=== PATIENT | male | born 1955 | race Hispanic/Latino ===

== ENCOUNTER 2018-08-31 16:26 | Inpatient (IN) | payer BC, OTHER ==
[2018-08-31 16:47] VITALS: BMI 28.8
[2018-08-31] MEDS: Albuterol-Ipratrop 3 mg / 0.5 (3 ml) UD IH SCH ×4 (17:06→20:07)
[2018-08-31 17:11] LABS: BASO # 0.11 K/mm3 (0.0-2.0); BASO % 1.3 % (0.0-3.0); EOS # 0.8 (0.0-0.7); EOS % 8.5 % (1.5-5.0); HEMOGLOBIN 14.5 g/dL (14.0-18.0); LYMPH # 2.6 (1.2-3.4); LYMPH % 29.5 % (22.0-35.0); MEAN CELL VOLUME 90.7 fl (80.0-105.0); MEAN CORPUSCULAR HEMOGLOBIN 30.7 pg (25.0-35.0); MEAN CORPUSCULAR HGB CONC 33.9 g/dl (31.0-37.0); MEAN PLATELET VOLUME 9.4 fl (7.0-11.0); MONO # 0.9 (0.1-0.6); MONO % 9.7 % (1.0-6.0); RBC 4.72 10^6/uL (3.5-6.1); RED CELL DISTRIBUTION WIDTH 12.9 % (11.5-14.5); WHITE BLOOD COUNT 8.8 10^3/uL (4.5-11.0)
[2018-08-31 17:15] LABS: ALB/GLOB RATIO 1.3 (1.1-1.8); ALBUMIN 4.4 g/dL (3.0-4.8); ALT/SGPT 26 U/L (7-56); AST/SGOT 27 U/L (17-59); BLOOD UREA NITROGEN 14 mg/dL (7-21); GFR NON-AFRICAN AMERICAN > 60; INR 0.98; LIPASE 68 U/L (23-300); PARTIAL THROMBOPLASTIN TIME 30.3 Seconds (26.9-38.3); PROTHROMBIN TIME 10.9 SECONDS (9.4-12.5)
[2018-08-31 17:27] LABS: TROPONIN I < 0.01 ng/mL
--- NOTE | 2018-08-31 17:27 | RAD ---
Date of service: 08/31/2018 HISTORY: chest pain COMPARISON: Yeah FINDINGS: LUNGS: The lungs are hyperinflated and there is peribronchial thickening with chronic changes in both lungs. No focal consolidation. PLEURA: No pleural effusions or pneumothorax. CARDIOVASCULAR: The heart is normal in size. There are aortic atherosclerotic calcifications present. OSSEOUS STRUCTURES: Within normal limits for the patient's age. VISUALIZED UPPER ABDOMEN: Normal. OTHER FINDINGS: None. IMPRESSION: No active pulmonary disease. COPD.
--- NOTE | 2018-08-31 17:47 | ED PDOC ---
Arrival/HPI - General Chief Complaint: Shortness Of Breath Time Seen by Provider: 08/31/18 16:27 Historian: Patient - History of Present Illness Narrative History of Present Illness (Text): 08/31/18 16:27 Patient is a 63 y/o male, with a past medical history of COPD, emphysema, and asthma, who presents to the emergency department complaining of shortness of breath since this morning. Patient states he feels his lungs being "squeezed" and notes associated chest pain and wheezing. Patient informs shortness of breath is worsened when walking. Patient also notes epigastric pain, nausea, and episodes of vomiting. Patient informs taking spiriva and symbicort. Patient denies headache, dizziness, fever, chills, diarrhea, dark / bloody stools or any other complaints. Time/Duration: Other (this morning) Symptom Onset: Sudden Symptom Course: Unchanged Activities at Onset: Light Context: Home Past Medical History - Provider Review Nursing Documentation Reviewed: Yes - Infectious Disease Hx of Infectious Diseases: None - Tetanus Immunization Tetanus Immunization: Unknown - Cardiac Hx Cardiac Disorders: Yes Hx Hypertension: Yes - Pulmonary Hx Emphysema: Yes - HEENT Other/Comment: wears glasses - Hematological/Oncological Hx Blood Transfusions: No Hx Blood Transfusion Reaction: No - Musculoskeletal/Rheumatological Hx Back Pain: Yes Hx Falls: No Hx Herniated Disk: Yes (lumbar cerical) - Psychiatric Hx Depression: No Hx Emotional Abuse: No Hx Physical Abuse: No Hx Substance Use: No - Surgical History Hx Musculoskeletal Surgery: Yes (right rotator cup) - Anesthesia Hx Anesthesia: Yes Hx Anesthesia Reactions: No Hx Malignant Hyperthermia: No - Suicidal Assessment Feels Threatened In Home Enviroment: No Family/Social History - Physician Review Nursing Documentation Reviewed: Yes Family/Social History: Unknown Family HX Smoking Status: Former Smoker Hx Alcohol Use: No (social) Hx Substance Use: No Allergies/Home Meds Allergies/Adverse Reactions: Allergies No Known Allergies Allergy (Verified 07/05/13 06:36) Home Medications: Home Meds Medication Instructions Recorded Confirmed No Known Home Med 07/05/13 07/05/13 Review of Systems - Physician Review All systems were reviewed & negative as marked: Yes - Review of Systems Constitutional: absent: Fevers, Other (chills) Respiratory: SOB, Wheezing Cardiovascular: Chest Pain Gastrointestinal: Abdominal Pain (epigastric), Nausea, Vomiting. absent: Hematochezia, Other (melena) Neurological: absent: Headache, Dizziness Physical Exam - Physical Exam Narrative Physical Exam (Text): 08/31/18 16:27 Gen: VS reviewed, alert, well developed, well nourished, nontoxic, mild distress. ENT: normal pharynx. Eye: EOMI, PERRL. Neck: no JVD, supple, no adenopathy. CV: regular rate, regular rhythm, no rubs, no murmur, no gallops, S1, S2, pulses equal and strong. Pulm: tachypneic, poor air exchange bilaterally. Diffuse bilateral expiratory wheeze. no rhonchi, no rales. Abd: mild to moderate epigastric tenderness. no guarding, no rebound, no rigidity, normal bowel sounds. Ext: trace bilateral lower extremity edema Skin: good color, no rash, no cyanosis. Psych: responds appropriately to questions, normal affect. Neuro: oriented x 3, CN2-12 intact grossly, motor intact, sensation intact. Vital Signs Reviewed: Yes Vital Signs Temp Pulse Resp BP Pulse Ox 08/31/18 16:38 97.6 F 80 20 163/93 H 97 Temperature: Afebrile Blood Pressure: Hypertensive Pulse: Regular Respiratory Rate: Normal Appearance: Positive for: Well-Appearing, Non-Toxic, Comfortable Pain Distress: None Mental Status: Positive for: Alert and Oriented X 3 Medical Decision Making ED Course and Treatment: 08/31/18 18:[address] chao, patient to be admitted for copd exacerbation, respiratory status improved with steroids and nex tx during ED course but will require further tx in hospital. - Lab Interpretations Lab Results: PT 10.9 SECONDS (9.4-12.5) 08/31/18 16:50 INR 0.98 08/31/18 16:50 APTT 30.3 Seconds (26.9-38.3) 08/31/18 16:50 Troponin I < 0.01 ng/mL 08/31/18 16:50 Total Bilirubin 0.7 mg/dL (0.2-1.3) 08/31/18 16:50 AST 27 U/L (17-59) 08/31/18 16:50 ALT 26 U/L (7-56) 08/31/18 16:50 Alkaline Phosphatase 66 U/L (38-126) 08/31/18 16:50 Total Protein 7.8 g/dL (5.8-8.3) 08/31/18 16:50 Albumin 4.4 g/dL (3.0-4.8) 08/31/18 16:50 Globulin 3.4 gm/dL 08/31/18 16:50 Albumin/Globulin Ratio 1.3 (1.1-1.8) 08/31/18 16:50 Lipase 68 U/L (23-300) 08/31/18 16:50 - RAD Interpretation Radiology Orders: 08/31/18 16:47 CHEST PORTABLE [RAD] Stat - EKG Interpretation EKG Interpretation (Text): 08/31/18 16:47 Reviewed EKG, shows: NSR @ 80 bpm, nml qrs, nml axis, no acute sttw abn. Interpreted by ED Physician: Yes Type: 12 lead EKG - Medication Orders Current Medication Orders: Discontinued Medications Albuterol/Ipratropium (Duoneb 3 Mg/0.5 Mg (3 Ml) Ud) 3 ml IH Q15M [id number] Stop: 08/31/18 17:31 Last Admin: 08/31/18 17:31 Dose: 3 ml Methylprednisolone (Solu-Medrol) 60 mg IVP STAT STA Stop: 08/31/18 16:49 Last Admin: 08/31/18 17:06 Dose: 60 mg IVP Administration Document 08/31/18 17:06 BB (Rec: 08/31/18 17:06 BB [id number]) Charges for Administration # of IVP Administrations 1 - Scribe Statement The provider has reviewed the documentation as recorded by the Scribe Lexa Lee All medical record entries made by the Scribe were at my direction and personally dictated by me. I have reviewed the chart and agree that the record accurately reflects my personal performance of the history, physical exam, medical decision making, and the department course for this patient. I have also personally directed, reviewed, and agree with the discharge instructions and disposition. Disposition/Present on Arrival - Present on Arrival Any Indicators Present on Arrival: No History of DVT/PE: No History of Uncontrolled Diabetes: No Urinary Catheter: No History of Decub. Ulcer: No History Surgical Site Infection Following: None - Disposition Have Diagnosis and Disposition been Completed?: Yes Diagnosis: COPD (chronic obstructive pulmonary disease) Disposition: HOSPITALIZED Disposition Time: 16:50 Patient Plan: Admission Patient Problems: Current Active Problems Problem Status Onset COPD (chronic obstructive pulmonary disease) Acute Condition: GUARDED
--- NOTE | 2018-08-31 18:05 | CARD ---
APPROVED REPORT Date of service: 08/31/2018 EKG Measurement Heart [id number] <Conclusion> NSR normal ECG
[2018-08-31] MEDS ORDERED: Albuterol-Ipratrop 3 mg / 0.5 (3 ml) UD IH PRN (18:12)
[2018-08-31] MEDS ORDERED: Azithromycin 500 MG in Sodium Chloride 0.9% 250 ML IVPB STA (18:30)
[2018-08-31] MEDS ORDERED: cefTRIAXone 1 GM/100 ML BAG IVPB STA (18:38)
[2018-08-31] MEDS ORDERED: Azithromycin 500MG/NS 250ml 500 MG/250 ML BAG IVPB STA (18:38)
[2018-09-01] MEDS ORDERED: Albuterol-Ipratrop 3 mg / 0.5 (3 ml) UD IH STA (06:40)
[2018-09-01] MEDS: Albuterol-Ipratrop 3 mg / 0.5 (3 ml) UD IH SCH ×4 (06:59→19:34)
[2018-09-01] MEDS: cefTRIAXone 1 gm 1 GM/100 ML BAG IVPB SCH (09:40)
[2018-09-01] MEDS ORDERED: MethylPREDNISolone 40 mg Vial IVP SCH ×2 (10:00)
--- NOTE | 2018-09-01 10:59 | HP ---
DATE OF EXAM: 09/01/2018 CHIEF COMPLAINT AND HISTORY OF PRESENT ILLNESS: This is a 63-year-old male who was coming to hospital complaining of shortness of breath. The patient says that he started having worsening shortness of breath. He had difficulty breathing. He was having cough with productive sputum production. He has no fevers or chills. No nausea. No vomiting. No abdominal pain. No back pain. No dysuria or frequency. No nocturia. He says this morning he is having some epigastric pain, which is mild. He has no dysuria or frequency. All other review of symptoms are within normal limits except what was mentioned. He says that he is having wheezing, the shortness of breath is worse when he ambulates. He has been taking his Spiriva and Symbicort, but has not had much improvement. He has no fevers or chills. No dizziness, no headaches. All other review of symptoms are within normal limits except what was mentioned. ALLERGIES: NO KNOWN DRUG ALLERGIES. HOME MEDICATIONS: He takes no medications. SOCIAL HISTORY: He quit smoking about 3 months ago. He has long smoking history for over 40 years. He denies alcohol or drugs. FAMILY HISTORY: Noncontributory. PHYSICAL EXAMINATION: VITAL SIGNS: He has a temperature of 97.7, pulse of 81, blood pressure 150/79, respirations 20 and O2 saturation is 98%. Height is 5 feet 8 inches. Weight is 190 pounds. BMI is 28.9. GENERAL: The patient is lying in bed, comfortable, and in no acute distress. HEENT: Atraumatic and normocephalic. Anicteric sclerae. Moist mucosa. [place] conjunctivae. No oral lesions. NECK: No JVD, anterior and posterior adenopathy, thyromegaly, or bruits. CARDIOVASCULAR: S1 and S2 regular. No murmurs, rubs or gallops. LUNGS: Decreased bilateral air entry. Mild wheezes. No rales or rhonchi. ABDOMEN: Bowel sounds are positive. Soft, nontender and nondistended. No hepatosplenomegaly. No rebound and no guarding EXTREMITIES: No cyanosis, clubbing, or edema. NEUROLOGIC: No facial asymmetry. Tongue is midline. No uvula deviation. Power is 5/5 upper extremities and lower extremities. Sensation intact in upper extremities and lower extremities. PSYCHIATRIC: He is awake, alert and oriented x3. No anxiety or depression. He has normal affect. GENITOURINARY: No CVA tenderness. VASCULAR: 2+ pulses in the carotid pulses and pedal pulses. SKIN: No erythema or nodules. SPINE: Shows normal curvature. LABORATORY DATA: White count 8.8, hemoglobin 14.5. Chemistry shows sodium 138, potassium is 4.2, creatinine is 0.8. INR is 0.98. EKG shows heart rate of 80, sinus rhythm with acute no ST changes. Chest x-rays shows no active disease, there are hyperinflated lungs. ASSESSMENT: 1. Acute chronic obstructive pulmonary disease. 2. Bronchitis. 3. Chronic back pain. PLAN: The patient is going to be admitted to the hospital. He has received Solu-Medrol, but he is continue to have shortness of breath. The patient is going to be given a dose of Lasix. I will get Cardiology and Pulmonary to evaluate the patient. The family is asked for Dr. Wade although they was seen Dr. Nuno, previously. The patient is on Solu-Medrol. I will replace the patient on Solu-Medrol twice a day. He is going to continue with Rocephin for IV antibiotics. I did speak to the patient's at the bedside to update her on patient's diagnosis and plan of care. We will await further input from the consultants. Hugh Allison MD
--- NOTE | 2018-09-01 12:17 | CON ---
DATE: 09/01/2018 PULMONARY CONSULTATION NOTE REFERRING PHYSICIAN: Dr. Murray. REASON FOR CONSULTATION: Shortness of breath and cough. HISTORY OF PRESENT ILLNESS: This is a 63-year-old male with past medical history significant for COPD, emphysema, asthma, gastric ulcer. The patient presented to the emergency room complaining of shortness of breath. The patient reports having worsening shortness of breath, difficulty breathing, having cough with sputum production, also reports having some epigastric pain, shortness of breath seems to be exacerbated when he ambulates, has been taking Spiriva and Symbicort at home, but had no improvement. The patient and who is at bedside reports that symptoms seems to have exacerbated about 3 months ago. The patient also reports having had bronchitis and symptoms, this never improved. States that he quit smoking 3 months ago where he had 40 year pack history, 2 packs per day. This morning, patient seen sitting at bedside with his presents, states he still has shortness of breath especially with exertion, has cough with sputum production. Reports having heartburns, snores, daytime fatigue. PAST MEDICAL HISTORY: As per HPI ALLERGIES: NO KNOWN ALLERGIES. SOCIAL HISTORY: Quit smoking 3 months ago. Smokes for 40 years, 2 packs per day. No EtOH abuse. No illicit drug use. FAMILY HISTORY: No significant cardiopulmonary disease reported. MEDICATIONS: Reviewed. DuoNeb 3 mL inhalation every 6 hours, Zithromax 250 mg daily, Rocephin 1 g daily, Solu-Medrol 40 mg IV push twice a day, Protonix 40 mg twice a day. REVIEW OF SYSTEMS: No headache, rhinitis, nausea, vomiting, diarrhea, leg pain or leg swelling reported. The patient does report having shortness of breath, coughing, sputum production. Reports heartburns, snoring, daytime fatigue. Reports epigastric pain. Reports having some pain on his left side when taking deep breaths. PHYSICAL EXAMINATION: GENERAL: No acute distress. VITAL SIGNS: Blood pressure 150/79, pulse 81, temperature 97.7 and oxygen saturations 98% on nasal cannula. HEENT: Moist mucous membranes. Mallampati score of 4. Crowded airway. NECK: Supple. No JVD. RESPIRATORY: Rhonchi bilaterally. Wheezing bilaterally. CARDIOVASCULAR: S1 and S2. Regular rate and rhythm. ABDOMEN: Soft. Positive epigastric tenderness. Positive bowel sounds. EXTREMITIES: No bilateral lower extremity edema. NEUROLOGIC: Awake, alert and verbal. Following commands. LABORATORY DATA: Reviewed. WBC 8.8, RBC 4.72, hemoglobin 14.5, hematocrit 42.8 and platelets 253. PT 10.8, INR 0.98, APTT 30.3. Sodium 138, potassium 4.2, chloride 102, carbon dioxide 28, anion gap 13, BUN 14, creatinine 0.8, GFR greater than 60, random glucose 97, calcium 9, total bilirubin 0.7, AST 27, ALT 26, alkaline phosphatase 66. Troponin less than 0.01, proBNP 90.7, total protein 7.8, albumin 4.4, globulin 3.4, albumin-globulin ratio 1.3, lipase 68. Chest x-ray shows no active pulmonary disease, COPD. EKG showed normal sinus rhythm. IMPRESSION AND PLAN: Chronic obstructive pulmonary disease exacerbation, gastroesophageal reflux disease, emphysema, asthma, history of gastric ulcers. Agree with current treatment plan. Continue antibiotics. Continue IV steroids. Continue Protonix. Continue inhaled bronchodilators. Recommend the patient should have echocardiogram done. We will order procalcitonin levels to be done. We will place the patient on Lovenox for DVT prophylaxis. We will order CT scan of the chest without contrast to be done due to history of smoking, shortness of breath, cough, chronic obstructive pulmonary disease exacerbation, suspect the patient has sleep apnea syndrome. Recommend head of bed elevated at 45 degrees, sleep apnea precaution. Recommend sleep study as outpatient. Recommend full pulmonary function test as outpatient. Continue supplemental oxygen. This patient was seen and examined with Dr. Wade. Discussed assessment and plan as described above. This patient was seen and examined with Pedro Patel, nurse practitioner. Discussed assessment and plan as described above. Thank you for this consult and we will follow with you. Amanda Vasquez APN Asia Wade MD [facility]
--- NOTE | 2018-09-01 12:47 | CT ---
Date of service: 09/01/2018 PROCEDURE: CT Chest without contrast HISTORY: cough, sob, hx of smoking 40 yrs COMPARISON: CT 06/09/2013 TECHNIQUE: Contiguous axial images were obtained through the chest without intravenous contrast enhancement. Sagittal and coronal reconstructions were performed. Radiation dose: Total exam DLP = 592.42 mGy-cm. This CT exam was performed using one or more of the following dose reduction techniques: Automated exposure control, adjustment of the mA and/or kV according to patient size, and/or use of iterative reconstruction technique. FINDINGS: LUNGS: Emphysema is seen primarily in the upper lobes. There is no evidence of focal consolidation or lung nodule. MEDIASTINUM: Unremarkable thoracic aorta. No aneurysm. Normal sized heart. Main pulmonary artery unremarkable. No vascular congestion. No lymphadenopathy. Aortic calcification PLEURA: No pleural fluid. No pneumothorax. BONES: No fracture. No destructive lesion. UPPER ABDOMEN: Grossly unremarkable. OTHER FINDINGS: None. IMPRESSION: Emphysema is seen primarily in the upper lobes. There is no evidence of focal consolidation or lung nodule.
[2018-09-01] MEDS: Pantoprazole 40 mg EC Tab PO SCH (18:12)
[2018-09-01] MEDS: MethylPREDNISolone 40 mg Vial IVP SCH (18:13)
[2018-09-01] MEDS: Acetylcysteine 20% Inhal Soln (4ml) IH SCH (19:34)
[2018-09-02] MEDS: Albuterol-Ipratrop 3 mg / 0.5 (3 ml) UD IH SCH ×4 (01:21→19:27)
[2018-09-02] MEDS ORDERED: Albuterol-Ipratrop 3 mg / 0.5 (3 ml) UD IH PRN (05:15)
[2018-09-02] MEDS: MethylPREDNISolone 40 mg Vial IVP SCH ×4 (06:51→17:19)
[2018-09-02] MEDS: Pantoprazole 40 mg EC Tab PO SCH ×2 (06:51→17:19)
[2018-09-02] MEDS: cefTRIAXone 1 gm 1 GM/100 ML BAG IVPB SCH (10:11)
[2018-09-02] MEDS: Enoxaparin 40 mg Syringe SC SCH (10:12)
[2018-09-02] MEDS: Acetylcysteine 20% Inhal Soln (4ml) IH SCH ×2 (10:50→19:27)
--- NOTE | 2018-09-02 10:52 | CARD ---
APPROVED REPORT Date of service: 09/02/2018 EXAM: Two-dimensional and M-mode echocardiogram with Doppler and color Doppler. INDICATION Dyspnea 2D DIMENSIONS Left Atrium (2D)3.3 (1.6-4.0cm)IVSd1.1 (0.7-1.1cm) LVDd4.6 (3.9-5.9cm)PWd1.1 (0.7-1.1cm) LVDs3.4 (2.5-4.0cm)FS (%) 26.9 % LVEF (%)52.4 (>50%) M-Mode DIMENSIONS Aortic Root2.80 (2.2-3.7cm)Aortic Cusp Exc.2.00 (1.5-2.0cm) Aortic Valve AoV Peak Ltlcpejy021.0cm/Anni Peak GR.10mmHg Mitral Valve E/A ratio0.0 TDI E/Lateral E'0.0E/Medial E'0.0 Tricuspid Valve TR Peak [id number] [id number] Peak Gr.12mmHg [id number] LEFT VENTRICLE The left ventricle is normal size. There is normal left ventricular wall thickness. The left ventricle is hyperdynamic. There is normal LV segmental wall motion. RIGHT VENTRICLE The right ventricle is normal size. The right ventricular systolic function is normal. ATRIA The left atrium size is normal. The right atrium size is normal. The interatrial septum is intact with no evidence for an atrial septal defect. AORTIC VALVE The aortic valve is normal in structure. No aortic regurgitation is present. There is no aortic valvular stenosis. MITRAL VALVE The mitral valve is normal in structure. There is no mitral valve regurgitation noted. TRICUSPID VALVE The tricuspid valve is normal in structure. There is mild tricuspid regurgitation. PULMONIC VALVE The pulmonary valve is normal in structure. GREAT VESSELS The aortic root is normal in size. The IVC is normal in size and collapses >50% with inspiration. PERICARDIAL EFFUSION There is no pleural effusion. There is no pericardial effusion. <Conclusion> Technically limited study. Normal chamber size. Hyperdynamic systolic LV function. EF > 70%. Mild TR.
--- NOTE | 2018-09-02 14:57 | PN ---
DATE: 09/02/2018 SUBJECTIVE: The patient has no complaints of any chest pain. No shortness of breath. No headaches. PHYSICAL EXAMINATION VITAL SIGNS: Temperature s 97.9, pulse is 73, blood pressure is 150/83, respirations 20. GENERAL: The patient is lying in bed, comfortable, and in no acute distress. HEENT: Atraumatic and normocephalic. Anicteric sclerae. Moist mucosa. [place] conjunctivae. No oral lesions. NECK: No JVD, anterior and posterior adenopathy, thyromegaly, or bruits. CARDIOVASCULAR: S1 and S2 regular. No murmurs, rubs or gallops. LUNGS: Good bilateral air entry. Bilateral wheezing. No rales or rhonchi. ABDOMEN: Bowel sounds are positive. Soft, nontender and nondistended. No hepatosplenomegaly. No rebound and no guarding EXTREMITIES: No cyanosis, clubbing, or edema. NEUROLOGIC: No facial asymmetry. Tongue is midline. No uvula deviation. Power is 5/5 upper extremities and lower extremities. Sensation intact in upper extremities and lower extremities. PSYCHIATRIC: He is awake, alert and oriented x3. No anxiety or depression. He has normal affect. GENITOURINARY: No CVA tenderness. VASCULAR: 2+ pulses in the carotid pulses and pedal pulses. SKIN: No erythema or nodules SPINE: Shows normal curvature. LABORATORY DATA: White count of 8.8, hemoglobin 14.5,creatinine 0.8. ASSESSMENT: 1. Acute chronic obstructive pulmonary disease. 2. Bronchitis. 3. Chronic back pain. PLAN: The patient had a CAT scan of the chest. It shows emphysema. There is no evidence of focal consolidation or lung nodules. I appreciate the note of Dr. Wade. I did review the note. The patient is waiting to being seen by Dr. Szymanski from Cardiology. The patient is on Mucomyst. He is going to continue with Daliresp for his COPD exacerbation. The patient is also nebulizer treatment. He is on Lovenox for DVT prophylaxis. He is on Rocephin for antibiotics and Xanax for anxiety. An echo has been ordered by Dr. Szymanski. The patient is on heart-healthy diet. I did speak to the patient's at the bedside to give an update on the diagnosis and plan of care. Hugh Allison MD [facility] # [id number]
--- NOTE | 2018-09-02 15:35 | CON ---
DATE OF CONSULTATION: 09/02/2018 REFERRING PHYSICIAN: Hugh Allison MD REASON FOR CONSULTATION: Dyspnea. HISTORY OF PRESENT ILLNESS: This is a 63-year-old man with a history of longstanding tobacco abuse and severe COPD and history of prior peptic ulcer disease, who has had marked worsening dyspnea over the past several months. He was seen in the office by his animal daycare provider 2 days ago and advised urgent hospital admission. He has severe dyspnea with minimal exertion. He denies any chest discomfort, although does feel tightness with his dyspneic episodes. He was evaluated with stress testing a number of years ago and this was unremarkable. He has no prior cardiac history. He was a smoker of several packs a day for many years, having quit 3 months ago. FAMILY HISTORY: Both parents from age-related illness. SOCIAL HISTORY: As mentioned. He denies alcohol use. He is , lives with his . CURRENT MEDICATIONS: Mucomyst, Daliresp, DuoNeb inhaler, subcutaneous Lovenox, Protonix, Rocephin, Singulair, Solu-Medrol 40 mg every 6 hours, Xanax and Zithromax. ALLERGIES: NONE. REVIEW OF SYSTEMS: A 12-point review of systems is notable mainly for problems mentioned above. PHYSICAL EXAMINATION: GENERAL: He is an anxious-appearing middle-aged man who appears dyspneic at rest. VITAL SIGNS: His blood pressure is 150/80 with a pulse of 90 and respirations are 26. He is currently afebrile. HEENT: Normocephalic, atraumatic. NECK: JVD present. CHEST: Diminished breath sounds bilaterally, increased AP diameter. HEART: Heart tones are distant. PMI is not palpable. Soft systolic murmur is noted at the left sternal border. ABDOMEN: Soft, protuberant, with normoactive bowel sounds. EXTREMITIES: No clubbing, cyanosis or edema. SKIN: Warm and dry. PSYCHIATRIC: Mild anxiety, but otherwise normal mood and affect. NEUROLOGIC: Alert and oriented x3. No gross motor or sensory deficits notable. DIAGNOSTIC DATA: White count is 8.8, hemoglobin and hematocrit 14.5 and 42.8 with platelet count of 252,000. PT/PTT 10.9 and 30.3. Potassium 4.2, BUN and creatinine are 14 and 0.8. Troponin is not detected. BNP is 90. Chest x-ray reveals hyperinflated lung rasmussen. The cardiac silhouette appears normal in size. No pulmonary vascular congestion is noted. His electrocardiogram reveals sinus rhythm and is otherwise normal. CT of the chest reveals extensive upper lobe emphysema. Thoracic aorta is normal in size. IMPRESSION: 1. Severe chronic obstructive pulmonary disease with severe emphysema, appears most consistent with progressive worsening chronic obstructive pulmonary disease. No clear evidence of overt heart failure. 2. History of peptic ulcer disease. 3. Longstanding tobacco abuse. RECOMMENDATIONS: An echocardiogram has been ordered and will be reviewed. Eventual pharmacologic stress test to exclude any component of cardiac ischemia would be reasonable once his pulmonary status has stabilized. Given his marked worsening of his dyspnea, screening for pulmonary thromboembolism could be considered, although he does not appear to be at high risk with no recent prolonged travel or immobilization. Obviously continued smoking abstinence is advised. Thank you for this consultation. I would be happy to follow along as needed. Jack Calabrese MD
[2018-09-03] MEDS: MethylPREDNISolone 40 mg Vial IVP SCH ×4 (00:43→17:41)
--- NOTE | 2018-09-03 02:16 | PN ---
DATE: 09/02/2018 PULMONARY PROGRESS NOTE REFERRING PHYSICIAN: Hugh Allison MD SUBJECTIVE: He feels better. Still short of breath and wheezing. Sitting on side of the bed. Family is at bedside. Has abdominal muscle discomfort. Also some epigastric discomfort. No nausea, vomiting, or diarrhea. No leg pain or leg swelling. OBJECTIVE: GENERAL: No acute distress. VITAL SIGNS: Temperature is 98, heart rate is 81, respiratory rate is 20, blood pressure 130/77, pulse oximetry is 96% on nasal cannula. HEENT: Moist mucous membrane. Crowded airway. NECK: Supple. No JVD. LUNGS: Have prolonged poor airflow with expiratory wheezing. HEART: S1 and S2. ABDOMEN: Soft, nontender. No organomegaly. EXTREMITIES: No edema. NEUROLOGICAL: Awake and follows simple commands. MEDICATIONS: Mucomyst inhaled twice a day, Daliresp 500 mcg daily, DuoNeb every 6 hours, also getting every 2 hours p.r.n., Lovenox 40 mg daily, Protonix 40 mg twice a day, Rocephin 1 g daily, Singulair 10 mg daily, Solu-Medrol 40 mg every 6 hours, Xanax 0.125 mg every 8 hours p.r.n., Zithromax 250 mg daily. LABORATORY DATA: Reviewed noted procalcitonin on yesterday was less than 0.05. Had echocardiogram done this morning which is showing right ventricular systolic pressure is 22, LV ejection fraction more than 70%, mild TR. IMPRESSION AND PLAN: Chronic obstructive lung disease with exacerbation, history of gastroesophageal reflux disease, gastric ulcers, may have sleep apnea syndrome. Spoke to family at bedside. All their questions were answered. We will continue present steroids, inhaled bronchodilator. Continue Daliresp. We will get arterial blood gas and electrolytes in the morning. We will need attended sleep study upon discharge as outpatient. Thank you and we will follow with you. Asia Wade MD
[2018-09-03] MEDS: Pantoprazole 40 mg EC Tab PO SCH ×2 (05:24→17:40)
[2018-09-03 07:48] LABS: HEMOGLOBIN 13.5 g/dL (14.0-18.0); MEAN CELL VOLUME 92.4 fl (80.0-105.0); MEAN CORPUSCULAR HEMOGLOBIN 30.2 pg (25.0-35.0); MEAN CORPUSCULAR HGB CONC 32.7 g/dl (31.0-37.0); MEAN PLATELET VOLUME 9.3 fl (7.0-11.0); RBC 4.47 10^6/uL (3.5-6.1); WHITE BLOOD COUNT 13.8 10^3/uL (4.5-11.0)
[2018-09-03 08:25] LABS: ALB/GLOB RATIO 1.3 (1.1-1.8); ALBUMIN 3.9 g/dL (3.0-4.8); ALT/SGPT 18 U/L (7-56); AST/SGOT 19 U/L (17-59); BLOOD UREA NITROGEN 16 mg/dL (7-21); CALCIUM 8.7 mg/dL (8.4-10.5); GFR NON-AFRICAN AMERICAN > 60
[2018-09-03] MEDS: Albuterol-Ipratrop 3 mg / 0.5 (3 ml) UD IH SCH ×4 (08:51→20:59)
[2018-09-03] MEDS: Acetylcysteine 20% Inhal Soln (4ml) IH SCH ×2 (08:51→20:59)
[2018-09-03] MEDS: Enoxaparin 40 mg Syringe SC SCH (09:24)
[2018-09-03] MEDS: Cefpodoxime (Vantin) 200 mg Tab PO SCH ×2 (09:25→22:11)
[2018-09-03 10:36] LABS: ARTERIAL BLOOD GAS HCO3 29.7 mmol/L (21-28); ARTERIAL BLOOD GAS HEMOGLOBIN 13.1 g/dL (11.7-17.4); ARTERIAL BLOOD GAS O2 CONTENT 17.5 ML/dl (15-23); ARTERIAL BLOOD GAS O2 SAT 97.3 % (95-98); ARTERIAL BLOOD GAS PCO2 48 mm/Hg (35-45); ARTERIAL BLOOD GAS TCO2 31.2 mmol.L (22-28)
--- NOTE | 2018-09-03 15:27 | PN ---
DATE: 09/03/2018 SUBJECTIVE: The patient says he continues to have a cough, it is productive. He says the nebulizer treatments do help him. He has no complaints of any chest pain. No headaches. PHYSICAL EXAMINATION: VITAL SIGNS: Temperature is 98, pulse of 75, blood pressure is 151/88, respirations 20. GENERAL: The patient is lying in bed, flat, comfortable. HEENT: No oral lesion. Anicteric sclerae. Moist mucosa. NECK: No JVD, adenopathy, or thyromegaly. CARDIOVASCULAR: S1 and S2, regular. No murmurs, rubs, or gallops. LUNGS: Clear to auscultation bilaterally. No wheeze, rales, or rhonchi. ABDOMEN: Bowel sounds are positive, soft, nontender and nondistended. EXTREMITIES: No cyanosis, clubbing or edema. LABORATORY DATA: White count is 13.8, hemoglobin 13.5, creatinine is 0.7. Echo shows normal chamber size, EF of 70%, mild TR. ASSESSMENT: 1. Acute chronic obstructive pulmonary disease. 2. Bronchitis. 3. Chronic back pain. PLAN: The patient is currently on Mucomyst for his sputum production. He is on roflumilast for his chronic obstructive pulmonary disease. He is going to continue with Lovenox for deep venous thrombosis prophylaxis. The patient is on Solu-Medrol for his chronic obstructive pulmonary disease exacerbation. He is on cefpodoxime for his bronchitis. He is going to be on Zithromax for his bronchitis as well. He is on Xanax for his anxiety. He is complaining of back discomfort because of the coughing as well as the fact that he does have some chronic back issues. He will be placed on tramadol 50 mg as needed. I did speak to the patient's at the bedside to give her an update on the patient's diagnosis and plan of care. The patient is being followed by Cardiology and Pulmonary. I appreciate their input. We will continue to follow the patient closely. Hugh Allison MD
[2018-09-03] MEDS: guaiFENesin-DM 600-30 mg ER Tab PO SCH (17:40)
[2018-09-03] MEDS: POLYETHYLENE GLYCOL 3350 17 GM/Dose PACKET PO SCH (18:14)
--- NOTE | 2018-09-03 20:31 | PN ---
DATE: 09/03/2018 PULMONARY PROGRESS NOTE REFERRING PHYSICIAN: Hugh Allison MD SUBJECTIVE: He is sitting side of the bed. Daughter and are at bedside. Still has a cough and shortness of breath, but feels better than yesterday. No nausea, vomiting, diarrhea, leg pain or leg swelling. OBJECTIVE PHYSICAL EXAMINATION VITAL SIGNS: Temperature is 98, heart rate 95, respiratory rate is 20, blood pressure 164/73, pulse oxygen of 98% on nasal cannula. HEENT: Moist mucous membranes. Crowded airway. NECK: Supple. No JVD. LUNGS: Have a prolonged expiratory phase with wheezing. HEART: S1, S2. ABDOMEN: Soft, nontender. No organomegaly. Mild epigastric tenderness. EXTREMITIES: There is no edema. NEUROLOGIC: Awake, alert and follows simple commands. MEDICATIONS: He is on Mucomyst inhaled twice a day, Daliresp 500 mcg daily, also getting albuterol HFA nebulizer every 6 hours, Lovenox 40 mg daily, Protonix 40 mg twice a day, Singulair 10 mg daily, Solu-Medrol 40 mg every 6 hours, Ultram 50 mg three times a day p.r.n., Vantin 200 mg twice a day, Xanax 0.125 mg every 8 hours p.r.n., and Zithromax 250 mg daily. LABORATORY DATA: Shows a hemoglobin 13.5, hematocrit 41.3, WBC 13.8, platelet is 258. VBG done today shows pH 7.40, pCO2 of 48, O2 of 77 with nasal cannula. Sodium 138, potassium 4, chloride 100, bicarbonate is 30, BUN 16, creatinine 0.7, glucose 99, calcium 8.7, AST 19, ALT 18, alk phos is 59. Albumin is 3.9. Procalcitonin is negative. Microbiology; blood culture, urine culture there is no growth. He had an echocardiogram done yesterday, which shows right ventricular systolic pressure is 22, LV ejection fraction is hyperdynamic, ejection fraction more than 70%, mild TR. IMPRESSION AND PLAN: Chronic obstructive lung disease with exacerbation, history of gastroesophageal reflux disease, gastric ulcers, may have a sleep apnea syndrome, hyperdynamic left heart. From a pulmonary point of view doing well. We will continue intravenous steroids, inhaled bronchodilators, antibiotics, gastric and deep venous thrombosis prophylaxis. May add a small dose of beta kulwinder with diuretics. We will also add Mucinex D twice a day. I spoke to the patient's and daughter at bedside. All the questions answered. Thank you and we will follow with you. Asia Wade MD
[2018-09-04] MEDS: MethylPREDNISolone 40 mg Vial IVP SCH ×5 (00:27→21:56)
[2018-09-04] MEDS: Albuterol-Ipratrop 3 mg / 0.5 (3 ml) UD IH SCH ×4 (02:00→19:44)
[2018-09-04] MEDS: Pantoprazole 40 mg EC Tab PO SCH ×2 (05:32→15:18)
[2018-09-04 07:07] LABS: HEMOGLOBIN 13.8 g/dL (14.0-18.0); MEAN CELL VOLUME 93.4 fl (80.0-105.0); MEAN CORPUSCULAR HEMOGLOBIN 30.5 pg (25.0-35.0); MEAN CORPUSCULAR HGB CONC 32.6 g/dl (31.0-37.0); MEAN PLATELET VOLUME 9.3 fl (7.0-11.0); RBC 4.53 10^6/uL (3.5-6.1); RED CELL DISTRIBUTION WIDTH 12.9 % (11.5-14.5); WHITE BLOOD COUNT 14.2 10^3/uL (4.5-11.0)
[2018-09-04 07:35] LABS: ALB/GLOB RATIO 1.3 (1.1-1.8); ALBUMIN 4.1 g/dL (3.0-4.8); ALT/SGPT 20 U/L (7-56); AST/SGOT 21 U/L (17-59); BLOOD UREA NITROGEN 18 mg/dL (7-21); CALCIUM 8.8 mg/dL (8.4-10.5); GFR NON-AFRICAN AMERICAN > 60
[2018-09-04] MEDS: Acetylcysteine 20% Inhal Soln (4ml) IH SCH ×2 (09:11→19:44)
[2018-09-04] MEDS: Enoxaparin 40 mg Syringe SC SCH (09:50)
[2018-09-04] MEDS: POLYETHYLENE GLYCOL 3350 17 GM/Dose PACKET PO SCH ×2 (09:50→17:03)
[2018-09-04] MEDS: Cefpodoxime (Vantin) 200 mg Tab PO SCH ×2 (09:51→21:57)
[2018-09-04] MEDS: guaiFENesin-DM 600-30 mg ER Tab PO SCH ×2 (09:51→17:03)
--- NOTE | 2018-09-04 12:49 | PN ---
DATE: 09/04/2018 SUBJECTIVE: The patient is seen sitting in bed on telemetry, appears much more comfortable today. He does continue to have exertional dyspnea as well as productive cough. His current medications include Mucomyst, Daliresp, DuoNeb inhaler, Lasix 20 mg daily, metoprolol 12.5 mg b.i.d., Lovenox, Mucinex, Protonix, Singulair, Solu-Medrol, Ultram, Vantin, Xanax, and Zithromax. OBJECTIVE: GENERAL: He is a middle-aged man who appears comfortable at rest. VITAL SIGNS: Blood pressure 146/80 with a pulse of 66 in sinus, respirations are 16. He is afebrile. HEENT: No JVD. CHEST: Bilateral scattered rhonchi heard. HEART: Heart tones somewhat distant. Soft systolic murmur at lower left sternal border. ABDOMEN: Soft, nontender with normoactive bowel sounds. EXTREMITIES: No edema. DIAGNOSTIC DATA: Potassium 5.4, BUN and creatinine 18 and 0.8. White count 14.2, hemoglobin and hematocrit 13.8 and 42.3 with platelet count 287,000. IMPRESSION: 1. Recent severe dyspnea, appears predominantly due to severe chronic obstructive pulmonary disease, predominantly emphysema. 2. Longstanding history of tobacco abuse. 3. History of peptic ulcer disease. RECOMMENDATIONS: His current medications should continue for now. An eventual outpatient pharmacologic stress test will be added to exclude any component of cardiac ischemia; however, this appears less likely. The need for continued tobacco abstinence was discussed with him. I will follow along as needed. Jack Calabrese MD
--- NOTE | 2018-09-04 12:52 | CP.PCM.PN ---
<Oseas Arreaga - Last Filed: 09/04/18 14:26> Subjective - Date & Time of Evaluation Date of Evaluation: 09/04/18 Time of Evaluation: 07:42 - Subjective Subjective: Oseas Arreaga D.O. PGY-3, Internal Medicine Resident, Dr. Allison's Service, Progress Note 63-year-old male with a past medical history of COPD, emphysema, asthma, GERD, previous gastric ulcers who presented for complaints of acute shortness of breath. Patient was seen and examined at bedside. Patient states that at times he continues to have a lot of shortness of breath. At times feels that he does not move a whole lot of air. Quit smoking 3 months ago. Objective - Vital Signs/Intake and Output Vital Signs (last 24 hours): Temp Pulse Resp BP Pulse Ox 97.6 F 66 18 142/87 96 09/04/18 11:59 09/04/18 11:59 09/04/18 11:59 09/04/18 11:59 09/04/18 05:44 Intake and Output: 09/04/18 09/04/18 06:59 18:59 Intake Total 2520 Output Total 2300 Balance 220 - Medications Medications: Current Medications Acetylcysteine (Acetylcysteine 20%) 4 ml IH BIDRESP [facility] Last Admin: 09/04/18 09:11 Dose: 4 ml Albuterol/Ipratropium (Duoneb 3 Mg/0.5 Mg (3 Ml) Ud) 3 ml IH [id number] NUZHAT Last Admin: 09/04/18 09:11 Dose: 3 ml Albuterol/Ipratropium (Duoneb 3 Mg/0.5 Mg (3 Ml) Ud) 3 ml IH Q2H PRN PRN Reason: Shortness of Breath Alprazolam (Xanax) 0.125 mg PO Q8 PRN; Protocol PRN Reason: Anxiety Stop: 09/08/18 14:31 Last Admin: 09/03/18 10:46 Dose: 0.125 mg Azithromycin (Zithromax) 250 mg PO DAILY [facility]; Protocol Last Admin: 09/04/18 09:50 Dose: 250 mg Cefpodoxime Proxetil (Vantin) 200 mg PO Q12 [facility] Last Admin: 09/04/18 09:51 Dose: 200 mg Enoxaparin Sodium (Lovenox) 40 mg SC DAILY [facility]; Protocol Last Admin: 09/04/18 09:50 Dose: 40 mg Furosemide (Lasix) 20 mg PO DAILY [facility] Last Admin: 09/04/18 09:50 Dose: 20 mg Guaifenesin/Dextromethorphan (Mucinex-Dm 600-30 Mg) 1 tab PO BID [facility] Last Admin: 09/04/18 09:51 Dose: 1 tab Methylprednisolone (Solu-Medrol) 40 mg IVP Q6 [facility] Last Admin: 09/04/18 05:32 Dose: 40 mg Metoprolol Tartrate (Lopressor) 12.5 mg PO BRKDIN [facility] Last Admin: 09/04/18 08:19 Dose: 12.5 mg Montelukast Sodium (Singulair) 10 mg PO HS [facility] Last Admin: 09/03/18 22:11 Dose: 10 mg Ondansetron HCl (Zofran Inj) 4 mg IVP Q6H PRN PRN Reason: Nausea/Vomiting Pantoprazole Sodium (Protonix Ec Tab) 40 mg PO 0600,1600 [facility] Last Admin: 09/04/18 05:32 Dose: 40 mg Polyethylene Glycol (Miralax) 17 gm PO BID [facility] Last Admin: 09/04/18 09:50 Dose: 17 gm Roflumilast (Daliresp) 500 mcg PO DAILY [facility] Last Admin: 09/04/18 09:50 Dose: 500 mcg Tramadol HCl (Ultram) 50 mg PO TID PRN PRN Reason: Pain, moderate (4-7) Last Admin: 09/04/18 08:32 Dose: 50 mg - Labs Labs: 09/04/18 06:40 09/04/18 06:40 PT 10.9 SECONDS (9.4-12.5) 08/31/18 16:50 INR 0.98 08/31/18 16:50 APTT 30.3 Seconds (26.9-38.3) 08/31/18 16:50 - Constitutional Appears: No Acute Distress, Chronically Ill - Head Exam Head Exam: ATRAUMATIC, NORMOCEPHALIC - Eye Exam Eye Exam: EOMI. absent: Scleral icterus - ENT Exam ENT Exam: Mucous Membranes Moist, Normal Oropharynx - Respiratory Exam Respiratory Exam: Decreased Breath Sounds, Wheezes Additional comments: poor air movement - Cardiovascular Exam Cardiovascular Exam: +S1, +S2. absent: Gallop, Rubs - GI/Abdominal Exam GI & Abdominal Exam: Soft, Normal Bowel Sounds. absent: Tenderness - Extremities Exam Extremities Exam: absent: Calf Tenderness - Neurological Exam Neurological Exam: Alert, Awake, Oriented x3 - Psychiatric Exam Psychiatric exam: Normal Affect, Normal Mood - Skin Skin Exam: Dry, Warm Assessment and Plan - Assessment and Plan (Free Text) Assessment: 63-year-old male with a past medical history of COPD, emphysema, asthma, GERD, previous gastric ulcers who presented for complaints of acute shortness of breath. Plan: 1. Acute exacerbation of chronic obstructive pulmonary disease 2. Bronchitis 3. Anxiety 4. Chronic back pain 5. GERD 6. Hypertension 7. Metabolic alkalosis 8. Hyperkalemia Patient still having wheezing on exam as well as symptomatic with shortness of breath. Pulmonary consultation reviewed and appreciated. Continue with Solu- Medrol 40 every 6, montelukast, Roflumilast, as well as as needed nebulizers and Mucomyst. Patient notes improvement with guaifenesin/DM, will continue. Patient to continue on azithromycin and Cefpodoxime. Patient encouraged to continue to not smoke now that he has not for 3 months. Chronic back pain is well control led on tramadol at this time. Continue DVT prophylaxis with Lovenox. Continue metoprolol. Continue Protonix. Echo reviewed and showed EF greater than 70% and hyperdynamic left ventricle. Cardiology consultation reviewed and appreciated, for outpatient stress test. Metabolic alkalosis from compensation for hypercapnea. Will follow. Transiently elevated hyperkalemia with no symptoms or telemetry changes, will give one time dose of lactulose and repeat CMP tomorrow. We will continue to monitor the patient closely inpatient. Patient was seen and examined and case discussed at length with attending physician. <Hugh Allison - Last Filed: 09/04/18 15:37> Objective - Vital Signs/Intake and Output Vital Signs (last 24 hours): Temp Pulse Resp BP Pulse Ox 97.6 F 66 18 142/87 96 09/04/18 11:59 09/04/18 11:59 09/04/18 11:59 09/04/18 11:59 09/04/18 05:44 Intake and Output: 09/04/18 09/04/18 06:59 18:59 Intake Total 2520 Output Total 2300 Balance 220 - Medications Medications: Current Medications Acetylcysteine (Acetylcysteine 20%) 4 ml IH BIDRESP [facility] Last Admin: 09/04/18 09:11 Dose: 4 ml Albuterol/Ipratropium (Duoneb 3 Mg/0.5 Mg (3 Ml) Ud) 3 ml IH [id number] NUZHAT Last Admin: 09/04/18 14:36 Dose: 3 ml Albuterol/Ipratropium (Duoneb 3 Mg/0.5 Mg (3 Ml) Ud) 3 ml IH Q2H PRN PRN Reason: Shortness of Breath Alprazolam (Xanax) 0.125 mg PO Q8 PRN; Protocol PRN Reason: Anxiety Stop: 09/08/18 14:31 Last Admin: 09/03/18 10:46 Dose: 0.125 mg Azithromycin (Zithromax) 250 mg PO DAILY [facility]; Protocol Last Admin: 09/04/18 09:50 Dose: 250 mg Cefpodoxime Proxetil (Vantin) 200 mg PO Q12 [facility] Last Admin: 09/04/18 09:51 Dose: 200 mg Enoxaparin Sodium (Lovenox) 40 mg SC DAILY [facility]; Protocol Last Admin: 09/04/18 09:50 Dose: 40 mg Furosemide (Lasix) 20 mg PO DAILY [facility] Last Admin: 09/04/18 09:50 Dose: 20 mg Guaifenesin/Dextromethorphan (Mucinex-Dm 600-30 Mg) 1 tab PO BID [facility] Last Admin: 09/04/18 09:51 Dose: 1 tab Methylprednisolone (Solu-Medrol) 40 mg IVP Q8 [facility] Last Admin: 09/04/18 14:26 Dose: Not Given Metoprolol Tartrate (Lopressor) 12.5 mg PO BRKDIN [facility] Last Admin: 09/04/18 08:19 Dose: 12.5 mg Montelukast Sodium (Singulair) 10 mg PO HS [facility] Last Admin: 09/03/18 22:11 Dose: 10 mg Ondansetron HCl (Zofran Inj) 4 mg IVP Q6H PRN PRN Reason: Nausea/Vomiting Last Admin: 09/04/18 13:07 Dose: 4 mg Pantoprazole Sodium (Protonix Ec Tab) 40 mg PO 0600,1600 [facility] Last Admin: 09/04/18 15:18 Dose: 40 mg Polyethylene Glycol (Miralax) 17 gm PO BID [facility] Last Admin: 09/04/18 09:50 Dose: 17 gm Roflumilast (Daliresp) 500 mcg PO DAILY [facility] Last Admin: 09/04/18 09:50 Dose: 500 mcg Tramadol HCl (Ultram) 50 mg PO TID PRN PRN Reason: Pain, moderate (4-7) Last Admin: 09/04/18 08:32 Dose: 50 mg - Labs Labs: 09/04/18 06:40 09/04/18 06:40 PT 10.9 SECONDS (9.4-12.5) 08/31/18 16:50 INR 0.98 08/31/18 16:50 APTT 30.3 Seconds (26.9-38.3) 08/31/18 16:50 Assessment and Plan - Assessment and Plan (Free Text) Plan: Pt seen and examined by me. I have reviewed the note of the medical practitioners and I agree with it. I have discussed the assessment and plan with the resident. I have reviewed the medications and the last labs.
--- NOTE | 2018-09-04 18:55 | PN ---
DATE: 09/04/2018 PULMONARY PROGRESS NOTE REFERRING PHYSICIAN: Dr. Allison. SUBJECTIVE: The patient is seen sitting at bedside. present. Reports feeling better. Still with cough and shortness of breath per reports that it is doing much better. No headache, rhinitis, chest pain, abdominal pain, nausea, vomiting, diarrhea, leg pain, leg swelling. The patient reports that he has not had a bowel movement since , which was about 4 days ago. PHYSICAL EXAMINATION: GENERAL: No acute distress. VITAL SIGNS: Blood pressure 160/85, pulse 80, temperature 98, and oxygen saturation 95% on room air. HEENT: Moist mucous membranes. Crowded airways. NECK: Supple. No JVD. LUNGS: Decreased breath sounds bilaterally. Few rhonchi. Wheezing improved. CARDIOVASCULAR: S1 and S2. ABDOMEN: Distended, nontender. EXTREMITIES: No bilateral lower extremity edema. NEUROLOGICAL: Awake, alert and verbal. Following commands. MEDICATIONS: Reviewed. Mucomyst 4 mL twice a day, DuoNeb 3 mL inhalation every 6 hours, DuoNeb 3 mL inhalation every 2 hours p.r.n., Xanax 0.125 mg every 8 hours p.r.n., Zithromax 250 mg daily, Vantin 200 mg every 12 hours, Lovenox 40 mg subcutaneously daily, Lasix 20 mg daily, Mucinex PM 1 tablet twice a day, Solu-Medrol 40 mg every 8 hours, metoprolol tartrate 12.5 mg , Singulair 10 mg at bedtime, Zofran 4 mg IV push every 6 hours p.r.n., Protonix 40 mg twice a day, MiraLax 17 g twice a day, Daliresp 500 mcg daily, and Ultram 50 mg 3 times a day p.r.n. LABORATORY DATA: Reviewed. WBC 14.2, RBC 4.53, hemoglobin 13.8, hematocrit 42.3, and platelets 287. Sodium 138, potassium 5.4, chloride 96, carbon dioxide 36, anion gap 12, BUN 18, creatinine 0.8, GFR greater than 60. Random glucose 127, calcium 8.8, total bilirubin 0.6. AST 21, ALT 20, alkaline phosphatase 58, total protein 7.2, albumin 4.1, globulin 3.2, and albumin-globulin ratio 1.3. Blood cultures preliminary, no growth after 3 days. IMPRESSION AND PLAN: Chronic obstructive lung disease exacerbation, history of gastroesophageal reflux disease, gastric ulcers, hyperdynamic left heart, obstructive sleep apnea syndrome, patient with emphysema. From a pulmonary point of view, continue inhaled bronchodilators. Continue antibiotic therapy. Gastric prophylaxis. Deep venous thrombosis prophylaxis. Will decrease Solu-Medrol to 40 mg every 8 hours. We will give the patient Dulcolax suppositories one time dose for complaints of constipation. Recommend the patient have full pulmonary function test as an outpatient. Recommendation of sleep study as outpatient. This patient was seen and examined with Dr. Wade. Discussed assessment and plan as described above. This patient was seen and examined by Amanda Vasquez, nurse practitioner. Discussed assessment and plan as described above. Thank you for this consult. We will follow with you. Amanda Vasquez APN Asia Wade MD
--- NOTE | 2018-09-04 19:31 | PN ---
DATE: 09/04/2018 SUBJECTIVE: The patient was seen and examined. I do agree with the note of the medical front desk coordinator that was involved in the plan of care. In the lungs, the patient had bilateral rhonchi. He had an acute COPD exacerbation and is on steroids with nebulizer treatments. He is on montelukast, roflumilast as well. He is getting Mucomyst for his secretions. He says he continues to have cough, congestion and sputum production. He is on Lovenox for DVT prophylaxis. He had an echo that showed EF of 70%. The patient is being followed by Pulmonary and Cardiology. I appreciate their input. He has bronchitis for which he is on antibiotics. He has chronic back pain and he is on tramadol for his pain. He has continued constipation. We will place him on lactulose. The patient has hyperkalemia. We will continue to follow for now. His blood pressure is under control. I am not sure if he is a candidate for TCU, but I did speak with the executive secretary social welfare and employment case manager regarding this. The patient is on cough medication with guaifenesin and dextromethorphan. He will continue with Protonix daily. He is on Xanax for his anxiety. He is on a heart healthy diet. Hugh Allison MD
[2018-09-05] MEDS: Albuterol-Ipratrop 3 mg / 0.5 (3 ml) UD IH SCH ×4 (02:36→20:14)
[2018-09-05] MEDS: Pantoprazole 40 mg EC Tab PO SCH ×2 (05:43→17:24)
[2018-09-05] MEDS: MethylPREDNISolone 40 mg Vial IVP SCH ×3 (05:43→21:21)
[2018-09-05 07:03] LABS: BASO # 0.01 K/mm3 (0.0-2.0); BASO % 0.1 % (0.0-3.0); HEMOGLOBIN 14.1 g/dL (14.0-18.0); LYMPH # 1.6 (1.2-3.4); LYMPH % 13.4 % (22.0-35.0); MEAN CELL VOLUME 92.9 fl (80.0-105.0); MEAN CORPUSCULAR HEMOGLOBIN 30.3 pg (25.0-35.0); MEAN CORPUSCULAR HGB CONC 32.6 g/dl (31.0-37.0); MEAN PLATELET VOLUME 9.4 fl (7.0-11.0); MONO # 1.1 (0.1-0.6); MONO % 8.9 % (1.0-6.0); RBC 4.66 10^6/uL (3.5-6.1); WHITE BLOOD COUNT 12.3 10^3/uL (4.5-11.0)
[2018-09-05 07:11] LABS: ALB/GLOB RATIO 1.3 (1.1-1.8); ALT/SGPT 18 U/L (7-56); AST/SGOT 22 U/L (17-59); BLOOD UREA NITROGEN 18 mg/dL (7-21); CALCIUM 9.1 mg/dL (8.4-10.5); GFR NON-AFRICAN AMERICAN > 60
[2018-09-05] MEDS: Acetylcysteine 20% Inhal Soln (4ml) IH SCH ×2 (07:22→20:15)
[2018-09-05] MEDS: guaiFENesin-DM 600-30 mg ER Tab PO SCH ×2 (09:13→17:24)
[2018-09-05] MEDS: POLYETHYLENE GLYCOL 3350 17 GM/Dose PACKET PO SCH ×2 (09:13→17:25)
[2018-09-05] MEDS: Enoxaparin 40 mg Syringe SC SCH (09:14)
[2018-09-05] MEDS: Cefpodoxime (Vantin) 200 mg Tab PO SCH ×2 (09:14→21:20)
--- NOTE | 2018-09-05 11:13 | CP.PCM.PN ---
<Oseas Arreaga - Last Filed: 09/05/18 11:08> Subjective - Date & Time of Evaluation Date of Evaluation: 09/05/18 Time of Evaluation: 07:35 - Subjective Subjective: Oseas Arreaga D.O. PGY-3, Internal Medicine Resident, Dr. Allison's Service, Progress Note 63-year-old male with a past medical history of COPD, emphysema, asthma, GERD, previous gastric ulcers who presented for complaints of acute shortness of breath. Patient was seen and examined at bedside. States breathing slowly improving. Still some wheezing. Was able to have large hard bowel movement overnight. Objective - Vital Signs/Intake and Output Vital Signs (last 24 hours): Temp Pulse Resp BP Pulse Ox 97.6 F 74 20 145/79 94 L 09/05/18 08:58 09/05/18 09:13 09/05/18 08:58 09/05/18 09:13 09/05/18 08:58 Intake and Output: 09/05/18 09/05/18 06:59 18:59 Intake Total 240 Balance 240 - Medications Medications: Current Medications Acetylcysteine (Acetylcysteine 20%) 4 ml IH BIDRESP [facility] Last Admin: 09/05/18 07:22 Dose: 4 ml Albuterol/Ipratropium (Duoneb 3 Mg/0.5 Mg (3 Ml) Ud) 3 ml IH [id number] NU[facility]AT Last Admin: 09/05/18 07:22 Dose: 3 ml Albuterol/Ipratropium (Duoneb 3 Mg/0.5 Mg (3 Ml) Ud) 3 ml IH Q2H PRN PRN Reason: Shortness of Breath Last Admin: 09/05/18 05:47 Dose: 3 ml Alprazolam (Xanax) 0.125 mg PO Q8 PRN; Protocol PRN Reason: Anxiety Stop: 09/08/18 14:31 Last Admin: 09/05/18 10:06 Dose: 0.125 mg Azithromycin (Zithromax) 250 mg PO DAILY [facility]; Protocol Last Admin: 09/05/18 09:15 Dose: 250 mg Cefpodoxime Proxetil (Vantin) 200 mg PO Q12 [facility] Last Admin: 09/05/18 09:14 Dose: 200 mg Enoxaparin Sodium (Lovenox) 40 mg SC DAILY [facility]; Protocol Last Admin: 09/05/18 09:14 Dose: 40 mg Furosemide (Lasix) 20 mg PO DAILY [facility] Last Admin: 09/05/18 09:13 Dose: 20 mg Guaifenesin/Dextromethorphan (Mucinex-Dm 600-30 Mg) 1 tab PO BID [facility] Last Admin: 09/05/18 09:13 Dose: 1 tab Methylprednisolone (Solu-Medrol) 40 mg IVP Q8 [facility] Last Admin: 09/05/18 05:43 Dose: 40 mg Metoprolol Tartrate (Lopressor) 12.5 mg PO BRKDIN [facility] Last Admin: 09/05/18 09:13 Dose: 12.5 mg Montelukast Sodium (Singulair) 10 mg PO HS [facility] Last Admin: 09/04/18 21:57 Dose: 10 mg Ondansetron HCl (Zofran Inj) 4 mg IVP Q6H PRN PRN Reason: Nausea/Vomiting Last Admin: 09/04/18 13:07 Dose: 4 mg Pantoprazole Sodium (Protonix Ec Tab) 40 mg PO 0600,1600 [facility] Last Admin: 09/05/18 05:43 Dose: 40 mg Polyethylene Glycol (Miralax) 17 gm PO BID [facility] Last Admin: 09/05/18 09:13 Dose: 17 gm Roflumilast (Daliresp) 500 mcg PO DAILY [facility] Last Admin: 09/05/18 09:13 Dose: 500 mcg Tramadol HCl (Ultram) 50 mg PO TID PRN PRN Reason: Pain, moderate (4-7) Last Admin: 09/05/18 10:05 Dose: 50 mg - Labs Labs: 09/05/18 06:15 09/05/18 06:15 PT 10.9 SECONDS (9.4-12.5) 08/31/18 16:50 INR 0.98 08/31/18 16:50 APTT 30.3 Seconds (26.9-38.3) 08/31/18 16:50 - Constitutional Appears: No Acute Distress, Chronically Ill - Head Exam Head Exam: ATRAUMATIC, NORMOCEPHALIC - Eye Exam Eye Exam: EOMI. absent: Scleral icterus - ENT Exam ENT Exam: Mucous Membranes Moist, Normal Oropharynx - Respiratory Exam Respiratory Exam: Decreased Breath Sounds, Wheezes Additional comments: poor air movement with some improvement from yesterday - Cardiovascular Exam Cardiovascular Exam: +S1, +S2. absent: Gallop, Rubs - GI/Abdominal Exam GI & Abdominal Exam: Soft, Normal Bowel Sounds. absent: Tenderness - Extremities Exam Extremities Exam: absent: Calf Tenderness - Neurological Exam Neurological Exam: Alert, Awake, Oriented x3 - Psychiatric Exam Psychiatric exam: Normal Affect, Normal Mood - Skin Skin Exam: Dry, Warm Assessment and Plan - Assessment and Plan (Free Text) Assessment: 63-year-old male with a past medical history of COPD, emphysema, asthma, GERD, previous gastric ulcers who presented for complaints of acute shortness of breath. Plan: 1. Acute exacerbation of chronic obstructive pulmonary disease 2. Bronchitis 3. Anxiety 4. Chronic back pain 5. GERD 6. Hypertension 7. Metabolic alkalosis 8. Hyperkalemia Patient has had some improvement of his shortness of breath from yesterday. His Solu-Medrol has been decreased in frequency from 40 every 6 to 40 every 8. Continue with montelukast, Roflumilast as well as as needed nebs. Patient notes a lot of improvement from Mucomyst and guaifenesin/DM. We will continue. Less sputum production now. Continue with azithromycin and Cefpodoxime. Continue to encourage tobacco cessation/abstinence. Constipation getting better, will give another dose of lactulose today. Back pain continues to be well controlled. Cardiology consultation has been appreciated. Compensatory metabolic alkalosis due to his chronic respiratory acidosis. We will continue to monitor the patient closely. Patient was seen and examined and case discussed at length with attending physician. <Hugh Allison - Last Filed: 09/05/18 17:54> Objective - Vital Signs/Intake and Output Vital Signs (last 24 hours): Temp Pulse Resp BP Pulse Ox 97.2 F L 86 18 124/74 95 09/05/18 16:58 09/05/18 17:22 09/05/18 16:58 09/05/18 17:22 09/05/18 16:58 Intake and Output: 09/05/18 09/05/18 06:59 18:59 Intake Total 240 Balance 240 - Medications Medications: Current Medications Acetylcysteine (Acetylcysteine 20%) 4 ml IH BIDRESP [facility] Last Admin: 09/05/18 07:22 Dose: 4 ml Albuterol/Ipratropium (Duoneb 3 Mg/0.5 Mg (3 Ml) Ud) 3 ml IH [id number] [facility] Last Admin: 09/05/18 14:04 Dose: 3 ml Albuterol/Ipratropium (Duoneb 3 Mg/0.5 Mg (3 Ml) Ud) 3 ml IH Q2H PRN PRN Reason: Shortness of Breath Last Admin: 09/05/18 05:47 Dose: 3 ml Alprazolam (Xanax) 0.125 mg PO Q8 PRN; Protocol PRN Reason: Anxiety Stop: 09/08/18 14:31 Last Admin: 09/05/18 17:32 Dose: 0.125 mg Azithromycin (Zithromax) 250 mg PO DAILY [facility]; Protocol Last Admin: 09/05/18 09:15 Dose: 250 mg Cefpodoxime Proxetil (Vantin) 200 mg PO Q12 [facility] Last Admin: 09/05/18 09:14 Dose: 200 mg Enoxaparin Sodium (Lovenox) 40 mg SC DAILY [facility]; Protocol Last Admin: 09/05/18 09:14 Dose: 40 mg Furosemide (Lasix) 20 mg PO DAILY [facility] Last Admin: 09/05/18 09:13 Dose: 20 mg Guaifenesin/Dextromethorphan (Mucinex-Dm 600-30 Mg) 1 tab PO BID [facility] Last Admin: 09/05/18 17:24 Dose: 1 tab Methylprednisolone (Solu-Medrol) 40 mg IVP Q8 [facility] Last Admin: 09/05/18 14:24 Dose: 40 mg Metoprolol Tartrate (Lopressor) 12.5 mg PO BRKDIN [facility] Last Admin: 09/05/18 17:22 Dose: 12.5 mg Montelukast Sodium (Singulair) 10 mg PO HS [facility] Last Admin: 09/04/18 21:57 Dose: 10 mg Ondansetron HCl (Zofran Inj) 4 mg IVP Q6H PRN PRN Reason: Nausea/Vomiting Last Admin: 09/04/18 13:07 Dose: 4 mg Pantoprazole Sodium (Protonix Ec Tab) 40 mg PO 0600,1600 [facility] Last Admin: 09/05/18 17:24 Dose: 40 mg Polyethylene Glycol (Miralax) 17 gm PO BID [facility] Last Admin: 09/05/18 17:25 Dose: 17 gm Roflumilast (Daliresp) 500 mcg PO DAILY [facility] Last Admin: 09/05/18 09:13 Dose: 500 mcg Tramadol HCl (Ultram) 50 mg PO TID PRN PRN Reason: Pain, moderate (4-7) Last Admin: 09/05/18 17:32 Dose: 50 mg - Labs Labs: 09/05/18 06:15 09/05/18 06:15 PT 10.9 SECONDS (9.4-12.5) 08/31/18 16:50 INR 0.98 08/31/18 16:50 APTT 30.3 Seconds (26.9-38.3) 08/31/18 16:50 Assessment and Plan - Assessment and Plan (Free Text) Plan: Pt seen and examined by me. I have reviewed the note of the ophthalmic medical assistant and I agree with it. I have discussed the assessment and plan with the resident. I have reviewed the medications and the last labs.
--- NOTE | 2018-09-05 21:15 | PN ---
DATE: 09/05/2018 The patient has acute COPD exacerbation. It is improving. The patient is on Solu-Medrol. His Solu-Medrol is being decreased. He has been followed by Pulmonary. He is on montelukast and roflumilast for his COPD as well. He is also getting Mucomyst nebulizer treatments. The patient had a bowel movement after he was given lactulose. He does have hyperkalemia. We will continue to follow that. He has hypertension that is controlled. He is on antibiotics with cefpodoxime and azithromycin. He does have anxiety. Currently, his anxiety is controlled. I did speak to the patient's to give an update on the patient's diagnosis and plan of care. The patient is on Lovenox for DVT prophylaxis. Hugh Allison MD
[2018-09-06] MEDS: Albuterol-Ipratrop 3 mg / 0.5 (3 ml) UD IH SCH ×4 (01:40→19:46)
[2018-09-06] MEDS: MethylPREDNISolone 40 mg Vial IVP SCH ×3 (05:18→21:24)
[2018-09-06] MEDS: Pantoprazole 40 mg EC Tab PO SCH ×2 (05:18→18:33)
[2018-09-06] MEDS: Acetylcysteine 20% Inhal Soln (4ml) IH SCH ×2 (07:52→19:46)
[2018-09-06 08:00] LABS: BASO # 0.01 K/mm3 (0.0-2.0); BASO % 0.1 % (0.0-3.0); EOS % 0.1 % (1.5-5.0); HEMOGLOBIN 13.9 g/dL (14.0-18.0); LYMPH # 1.1 (1.2-3.4); LYMPH % 8.2 % (22.0-35.0); MEAN CELL VOLUME 91.8 fl (80.0-105.0); MEAN CORPUSCULAR HEMOGLOBIN 30.8 pg (25.0-35.0); MEAN CORPUSCULAR HGB CONC 33.5 g/dl (31.0-37.0); MONO # 1.1 (0.1-0.6); MONO % 8.2 % (1.0-6.0); RBC 4.52 10^6/uL (3.5-6.1); RED CELL DISTRIBUTION WIDTH 12.9 % (11.5-14.5); WHITE BLOOD COUNT 13.1 10^3/uL (4.5-11.0)
[2018-09-06 08:13] LABS: ALB/GLOB RATIO 1.3 (1.1-1.8); ALBUMIN 3.8 g/dL (3.0-4.8); ALT/SGPT 35 U/L (7-56); AST/SGOT 21 U/L (17-59); BLOOD UREA NITROGEN 17 mg/dL (7-21); CALCIUM 8.5 mg/dL (8.4-10.5); GFR NON-AFRICAN AMERICAN > 60
[2018-09-06] MEDS: Cefpodoxime (Vantin) 200 mg Tab PO SCH ×2 (09:34→21:23)
[2018-09-06] MEDS: guaiFENesin-DM 600-30 mg ER Tab PO SCH ×2 (09:34→18:33)
[2018-09-06] MEDS: POLYETHYLENE GLYCOL 3350 17 GM/Dose PACKET PO SCH ×2 (09:35→18:31)
[2018-09-06] MEDS: Enoxaparin 40 mg Syringe SC SCH (09:35)
--- NOTE | 2018-09-06 13:19 | CP.PCM.PN ---
<Oseas Arreaga - Last Filed: 09/06/18 13:13> Subjective - Date & Time of Evaluation Date of Evaluation: 09/06/18 Time of Evaluation: 07:50 - Subjective Subjective: Oseas Arreaga D.O. PGY-3, Internal Medicine Resident, Dr. Allison's Service, Progress Note 63-year-old male with a past medical history of COPD, emphysema, asthma, GERD, previous gastric ulcers who presented for complaints of acute shortness of breath, found to have an acute exacerbation of his COPD. Patient was seen and examined at bedside. States breathing improving slowly. Desatted to 88% yesterday while off oxygen. Still no more bowel movements. Objective - Vital Signs/Intake and Output Vital Signs (last 24 hours): Temp Pulse Resp BP Pulse Ox 97.5 F L 60 20 157/80 H 94 L 09/06/18 08:04 09/06/18 08:20 09/06/18 08:04 09/06/18 10:43 09/06/18 10:00 Intake and Output: 09/06/18 09/06/18 06:59 18:59 Intake Total 1080 Balance 1080 - Medications Medications: Current Medications Acetylcysteine (Acetylcysteine 20%) 4 ml IH BIDRESP [facility] Last Admin: 09/06/18 07:52 Dose: 4 ml Albuterol/Ipratropium (Duoneb 3 Mg/0.5 Mg (3 Ml) Ud) 3 ml IH [id number] [facility]AT Last Admin: 09/06/18 07:52 Dose: 3 ml Albuterol/Ipratropium (Duoneb 3 Mg/0.5 Mg (3 Ml) Ud) 3 ml IH Q2H PRN PRN Reason: Shortness of Breath Last Admin: 09/05/18 05:47 Dose: 3 ml Alprazolam (Xanax) 0.125 mg PO Q8 PRN; Protocol PRN Reason: Anxiety Stop: 09/08/18 14:31 Last Admin: 09/06/18 09:35 Dose: 0.125 mg Azithromycin (Zithromax) 250 mg PO DAILY [facility]; Protocol Last Admin: 09/06/18 09:35 Dose: 250 mg Cefpodoxime Proxetil (Vantin) 200 mg PO Q12 [facility] Last Admin: 09/06/18 09:34 Dose: 200 mg Enoxaparin Sodium (Lovenox) 40 mg SC DAILY [facility]; Protocol Last Admin: 09/06/18 09:35 Dose: 40 mg Furosemide (Lasix) 20 mg PO DAILY [facility] Last Admin: 09/06/18 09:36 Dose: 20 mg Guaifenesin/Dextromethorphan (Mucinex-Dm 600-30 Mg) 1 tab PO BID [facility] Last Admin: 09/06/18 09:34 Dose: 1 tab Methylprednisolone (Solu-Medrol) 40 mg IVP Q8 [facility] Last Admin: 09/06/18 13:08 Dose: 40 mg Metoprolol Tartrate (Lopressor) 12.5 mg PO BRKDIN [facility] Last Admin: 09/06/18 06:40 Dose: 12.5 mg Montelukast Sodium (Singulair) 10 mg PO HS [facility] Last Admin: 09/05/18 21:20 Dose: 10 mg Ondansetron HCl (Zofran Inj) 4 mg IVP Q6H PRN PRN Reason: Nausea/Vomiting Last Admin: 09/04/18 13:07 Dose: 4 mg Pantoprazole Sodium (Protonix Ec Tab) 40 mg PO 0600,1600 [facility] Last Admin: 09/06/18 05:18 Dose: 40 mg Polyethylene Glycol (Miralax) 17 gm PO BID [facility] Last Admin: 09/06/18 09:35 Dose: 17 gm Roflumilast (Daliresp) 500 mcg PO DAILY [facility] Last Admin: 09/06/18 09:35 Dose: 500 mcg Tramadol HCl (Ultram) 50 mg PO TID PRN PRN Reason: Pain, moderate (4-7) Last Admin: 09/06/18 09:34 Dose: 50 mg - Labs Labs: 09/06/18 07:45 09/06/18 07:45 PT 10.9 SECONDS (9.4-12.5) 08/31/18 16:50 INR 0.98 08/31/18 16:50 APTT 30.3 Seconds (26.9-38.3) 08/31/18 16:50 - Constitutional Appears: No Acute Distress, Chronically Ill - Head Exam Head Exam: ATRAUMATIC, NORMOCEPHALIC - Eye Exam Eye Exam: EOMI. absent: Scleral icterus - ENT Exam ENT Exam: Mucous Membranes Moist, Normal Oropharynx - Respiratory Exam Respiratory Exam: Decreased Breath Sounds, Wheezes Additional comments: poor air movement - Cardiovascular Exam Cardiovascular Exam: +S1, +S2. absent: Gallop, Rubs - GI/Abdominal Exam GI & Abdominal Exam: Soft, Normal Bowel Sounds. absent: Tenderness - Extremities Exam Extremities Exam: absent: Calf Tenderness - Neurological Exam Neurological Exam: Alert, Awake, Oriented x3 - Psychiatric Exam Psychiatric exam: Normal Affect, Normal Mood - Skin Skin Exam: Dry, Warm Assessment and Plan - Assessment and Plan (Free Text) Assessment: 63-year-old male with a past medical history of COPD, emphysema, asthma, GERD, previous gastric ulcers who presented for complaints of acute shortness of breath, found to have an acute exacerbation of his COPD. Plan: 1. Acute exacerbation of chronic obstructive pulmonary disease 2. Bronchitis 3. Anxiety 4. Chronic back pain 5. GERD 6. Hypertension 7. Metabolic alkalosis 8. Hyperkalemia - resolved Patient's breathing improving slowly. Currently on Solu-Medrol 40 q. 8, montelukast, Roflumilast, and as needed nebulizers for COPD. Pulm recs reviewed and appreciated. Continue as needed Mucomyst and guaifenesin DM. Continue azithromycin and Cefpodoxime for his bronchitis. Continue to encourage tobacco abstinence. We will give another one-time Dulcolax suppository for his constipation. Given his respiratory status will also give a one-time dose of Lasix 40 mg IV push. Continue lovenox 40mg. Hyperkalemia resolved. Patient was seen and examined and case was discussed. <Hugh Allison S - Last Filed: 09/06/18 15:14> Objective - Vital Signs/Intake and Output Vital Signs (last 24 hours): Temp Pulse Resp BP Pulse Ox 97.5 F L 60 20 157/80 H 94 L 09/06/18 08:04 09/06/18 08:20 09/06/18 08:04 09/06/18 10:43 09/06/18 10:00 Intake and Output: 09/06/18 09/06/18 06:59 18:59 Intake Total 1080 Balance 1080 - Medications Medications: Current Medications Acetylcysteine (Acetylcysteine 20%) 4 ml IH BIDRESP [facility] Last Admin: 09/06/18 07:52 Dose: 4 ml Albuterol/Ipratropium (Duoneb 3 Mg/0.5 Mg (3 Ml) Ud) 3 ml IH [id number] [facility] Last Admin: 09/06/18 13:20 Dose: 3 ml Albuterol/Ipratropium (Duoneb 3 Mg/0.5 Mg (3 Ml) Ud) 3 ml IH Q2H PRN PRN Reason: Shortness of Breath Last Admin: 09/05/18 05:47 Dose: 3 ml Alprazolam (Xanax) 0.125 mg PO Q8 PRN; Protocol PRN Reason: Anxiety Stop: 09/08/18 14:31 Last Admin: 09/06/18 09:35 Dose: 0.125 mg Azithromycin (Zithromax) 250 mg PO DAILY [facility]; Protocol Last Admin: 09/06/18 09:35 Dose: 250 mg Cefpodoxime Proxetil (Vantin) 200 mg PO Q12 [facility] Last Admin: 09/06/18 09:34 Dose: 200 mg Enoxaparin Sodium (Lovenox) 40 mg SC DAILY [facility]; Protocol Last Admin: 09/06/18 09:35 Dose: 40 mg Furosemide (Lasix) 20 mg PO DAILY [facility] Last Admin: 09/06/18 09:36 Dose: 20 mg Guaifenesin/Dextromethorphan (Mucinex-Dm 600-30 Mg) 1 tab PO BID [facility] Last Admin: 09/06/18 09:34 Dose: 1 tab Methylprednisolone (Solu-Medrol) 40 mg IVP Q12 [facility] Metoprolol Tartrate (Lopressor) 12.5 mg PO BRKDIN [facility] Last Admin: 09/06/18 06:40 Dose: 12.5 mg Montelukast Sodium (Singulair) 10 mg PO HS [facility] Last Admin: 09/05/18 21:20 Dose: 10 mg Ondansetron HCl (Zofran Inj) 4 mg IVP Q6H PRN PRN Reason: Nausea/Vomiting Last Admin: 09/04/18 13:07 Dose: 4 mg Pantoprazole Sodium (Protonix Ec Tab) 40 mg PO 0600,1600 [facility] Last Admin: 09/06/18 05:18 Dose: 40 mg Polyethylene Glycol (Miralax) 17 gm PO BID [facility] Last Admin: 09/06/18 09:35 Dose: 17 gm Roflumilast (Daliresp) 500 mcg PO DAILY [facility] Last Admin: 09/06/18 09:35 Dose: 500 mcg Tramadol HCl (Ultram) 50 mg PO TID PRN PRN Reason: Pain, moderate (4-7) Last Admin: 09/06/18 09:34 Dose: 50 mg - Labs Labs: 09/06/18 07:45 09/06/18 07:45 PT 10.9 SECONDS (9.4-12.5) 08/31/18 16:50 INR 0.98 08/31/18 16:50 APTT 30.3 Seconds (26.9-38.3) 08/31/18 16:50 Assessment and Plan - Assessment and Plan (Free Text) Plan: Pt seen and examined by me. I have reviewed the note of the medical coding specialist and I agree with it. I have discussed the assessment and plan with the resident. I have reviewed the medications and the last labs. Pt with acute COPD that is improving slowly. He is on Solumedrol and Neb treatments. He complains of PND and I will give him Lasix 40 mg iv x1. Pt is on Cefpodoxime for his Bronchitis. His hyperkalemia has resolved. He complains of constipation. He will be given a suppository. Pulm and cardiology is following.
--- NOTE | 2018-09-06 17:24 | PN ---
DATE: 09/06/2018 PULMONARY PROGRESS NOTE REFERRING PHYSICIAN: Dr. Allison. SUBJECTIVE: The patient is seen sitting up at bedside, no acute distress. The patient reports that last night he did not have nasal cannula in place and oxygen saturation dropped to 88%. Still has cough and shortness of breath, but it improved some. Reports having bowel movement this morning. He did receive a one-time dose suppository this morning, which he states was effective. No headache, rhinitis, chest pain, abdominal pain, nausea, vomiting, diarrhea, leg pain or leg swelling reported. PHYSICAL EXAMINATION: GENERAL: No acute distress. VITAL SIGNS: Blood pressure 156/82, pulse 60, oxygen 97 nasal cannula, temperature 97.5. HEENT: Moist mucous membranes. Crowded airway. NECK: Supple. No JVD. LUNGS: Decreased breath sounds bilaterally. No audible wheezing. CARDIOVASCULAR: S1 and S2. ABDOMEN: Soft and nontender. No distention. EXTREMITIES: No bilateral lower extremity edema. NEUROLOGIC: Awake, alert, and verbal. Following commands. MEDICATIONS: Reviewed. Mucomyst 4 mL inhalation twice a day, DuoNeb 3 mL inhalation every 6 hours, DuoNeb 3 mL inhalation every 2 hours p.r.n., Xanax 0.125 mg p.o. every 8 hours p.r.n., Zithromax 250 mg p.o. daily, Vantin 200 mg every 12 hours, Lovenox 40 mg subcu daily, Lasix 20 mg daily, Mucinex DM one tab twice a day, Solu-Medrol 40 mg every 8 hours, Lopressor 12.5 mg p.o. breakfast and dinner, Singulair 10 mg at h.s., Zofran 4 mg IV push every 6 hours p.r.n., Protonix 40 mg twice a day, MiraLax 17 g twice a day, Daliresp 500 mcg daily, Ultram 50 mg three times a day p.r.n. LABORATORY DATA: Reviewed. WBC is 13.1, RBC is 4.52, hemoglobin 13.9, hematocrit 41.5, platelets 271. Sodium 134, potassium 4.3, chloride 97, carbon dioxide 31, anion gap 10, BUN 17, creatinine 0.6, GFR greater than 60, random glucose 108, calcium 8.5, phosphorous 3.9, magnesium 2.3, total bilirubin 0.8, AST 21, ALT 35, alkaline phosphatase 55, total protein 6.5, and albumin 3.8, globulin 3.9, albumin globulin ratio 1.3. Blood culture final, no growth after five days. IMPRESSION AND PLAN: Chronic obstructive lung disease exacerbation, history of gastroesophageal reflux disease, gastric ulcer, hyperdynamic left heart, suspected obstructive sleep apnea syndrome, emphysema. Pulmonary point of view, continue inhaled bronchodilator. Continue antibiotic therapy. Gastric prophylaxis, deep venous thrombosis prophylaxis. Monitor bowel movements. We will decrease Solu-Medrol to 40 mg every 12 hours. Recommend the patient have full pulmonary function tests as outpatient. Recommend the patient have sleep study as outpatient to evaluate sleep apnea syndrome. Fall precautions. The patient was seen and examined with Dr. Wade. Discussed assessment and plan as described above. The patient was seen and examined with Amanda Vasquez, Nurse Practitioner. Discussed assessment and plan as described above. Thank you for this consult. We will follow with you. Amanda Vasquez APN Asia Wade MD [facility]
[2018-09-07] MEDS: Albuterol-Ipratrop 3 mg / 0.5 (3 ml) UD IH SCH ×3 (01:02→20:09)
[2018-09-07] MEDS: Pantoprazole 40 mg EC Tab PO SCH ×2 (05:35→17:18)
[2018-09-07] MEDS: Acetylcysteine 20% Inhal Soln (4ml) IH SCH ×2 (08:03→20:09)
[2018-09-07] MEDS: MethylPREDNISolone 40 mg Vial IVP SCH ×3 (09:15→22:20)
[2018-09-07] MEDS: POLYETHYLENE GLYCOL 3350 17 GM/Dose PACKET PO SCH ×2 (09:16→17:19)
[2018-09-07] MEDS: Cefpodoxime (Vantin) 200 mg Tab PO SCH ×2 (09:16→22:19)
[2018-09-07] MEDS: Enoxaparin 40 mg Syringe SC SCH (09:16)
[2018-09-07] MEDS: guaiFENesin-DM 600-30 mg ER Tab PO SCH ×2 (09:16→17:19)
--- NOTE | 2018-09-07 11:00 | PN ---
DATE: 09/07/2018 PULMONARY PROGRESS NOTE REFERRING PHYSICIAN: Dr. Allison. SUBJECTIVE: The patient is seen sitting up at bedside. is present at bedside. No acute distress. The patient is noted without oxygen on via nasal cannula. Status he has been sitting there without oxygen for 1 hour. Oxygen saturation checked by me noted to be 97% on room air. Reports improvement in cough and shortness of breath. No headache, rhinitis, chest pain, abdominal pain, nausea, vomiting, diarrhea, leg pain, leg swelling reported. He had bowel movements yesterday. OBJECTIVE: GENERAL: No acute distress. VITAL SIGNS: Blood pressure 156/85, pulse 81, temperature 97.8, and oxygen saturation 97% on room air. HEENT: Moist mucous membranes. Mallampati score of 4. Crowded airway. NECK: Supple. No JVD. LUNGS: No audible wheezing; still with some decreased breath sounds bilaterally, but airflow improving. CARDIOVASCULAR: S1 and S2. ABDOMEN: Soft and nontender. No distention. EXTREMITIES: No bilateral lower extremity edema. NEUROLOGIC: Awake, alert, and verbal. Following commands. MEDICATIONS: Reviewed. Mucomyst 4 mL inhalation twice a day, DuoNeb 3 mL inhalation every 6 hours, DuoNeb 3 mL inhalation every 2 hours p.r.n., Xanax 0.125 mg p.o. every 8 hours p.r.n., Zithromax 250 mg daily, Vantin 200 mg every 12 hours, Lovenox 40 mg subcutaneous daily, Lasix 20 mg daily, Mucinex DM one tab twice a day, Solu-Medrol 40 mg every 12 hours, metoprolol 25 mg p.o. at breakfast and dinner, Singulair 10 mg at bedtime, Zofran 4 mg IV push every 6 hours p.r.n., Protonix 40 mg twice a day, MiraLax 17 g twice a day, Daliresp 500 mcg daily, and Ultram 50 mg three times a day p.r.n. LABORATORY DATA: Reviewed. No new labs since yesterday. IMPRESSION AND PLAN: Chronic obstructive lung disease exacerbation, gastroesophageal reflux disease, gastric ulcer, hyperdynamic left heart, suspected obstructive sleep apnea syndrome, and emphysema. Pulmonary point of view, continue inhaled bronchodilators. Continue antibiotic therapy, gastric prophylaxis, and deep venous thrombosis prophylaxis. Monitor bowel movements. We will decrease Solu-Medrol to 20 mg every 8 hours. Fall precautions, sleep apnea precautions, head of bed elevated at 45 degrees. Recommend the patient to have full pulmonary function test as outpatient. Recommend the patient have sleep study as outpatient to evaluate sleep apnea syndrome. The patient was seen and examined with Dr. Wade. Discussed assessment and plan as described above. The patient was seen and examined with Amanda Vasquez, Nurse Practitioner. Discussed assessment and plan as described above. Thank you for this consult. We will follow with you. Amanda Vasquez APN Asia Wade MD
--- NOTE | 2018-09-07 15:50 | CP.PCM.PN ---
<Oseas Arreaga - Last Filed: 09/07/18 15:44> Subjective - Date & Time of Evaluation Date of Evaluation: 09/07/18 Time of Evaluation: 08:05 - Subjective Subjective: Oseas Arreaga D.O. PGY-3, Internal Medicine Resident, Dr. Allison's Service, Progress Note 63-year-old male with a past medical history of COPD, emphysema, asthma, GERD, previous gastric ulcers who presented for complaints of acute shortness of breath, found to have an acute exacerbation of his COPD. Patient was seen and examined at bedside. Breathing improving. No more wheezing. Wants to try being without O2 some more today. Objective - Vital Signs/Intake and Output Vital Signs (last 24 hours): Temp Pulse Resp BP Pulse Ox 97.8 F 81 20 156/85 H 93 L 09/07/18 08:02 09/07/18 08:02 09/07/18 08:02 09/07/18 09:16 09/07/18 08:02 Intake and Output: 09/07/18 09/07/18 06:59 18:59 Intake Total 1260 Balance 1260 - Medications Medications: Current Medications Acetylcysteine (Acetylcysteine 20%) 4 ml IH BIDRESP [facility] Last Admin: 09/07/18 08:03 Dose: 4 ml Albuterol/Ipratropium (Duoneb 3 Mg/0.5 Mg (3 Ml) Ud) 3 ml IH [id number] Last Admin: 09/07/18 08:03 Dose: 3 ml Albuterol/Ipratropium (Duoneb 3 Mg/0.5 Mg (3 Ml) Ud) 3 ml IH Q2H PRN PRN Reason: Shortness of Breath Last Admin: 09/05/18 05:47 Dose: 3 ml Alprazolam (Xanax) 0.125 mg PO Q8 PRN; Protocol PRN Reason: Anxiety Stop: 09/08/18 14:31 Last Admin: 09/06/18 18:30 Dose: 0.125 mg Azithromycin (Zithromax) 250 mg PO DAILY [facility]; Protocol Last Admin: 09/07/18 09:16 Dose: 250 mg Cefpodoxime Proxetil (Vantin) 200 mg PO Q12 [facility] Last Admin: 09/07/18 09:16 Dose: 200 mg Enoxaparin Sodium (Lovenox) 40 mg SC DAILY [facility]; Protocol Last Admin: 09/07/18 09:16 Dose: 40 mg Furosemide (Lasix) 20 mg PO DAILY [facility] Last Admin: 09/07/18 09:16 Dose: 20 mg Guaifenesin/Dextromethorphan (Mucinex-Dm 600-30 Mg) 1 tab PO BID [facility] Last Admin: 09/07/18 09:16 Dose: 1 tab Methylprednisolone (Solu-Medrol) 20 mg IVP Q8 [facility] Last Admin: 09/07/18 14:17 Dose: 20 mg Metoprolol Tartrate (Lopressor) 12.5 mg PO BRKDIN [facility] Montelukast Sodium (Singulair) 10 mg PO HS [facility] Last Admin: 09/06/18 21:24 Dose: 10 mg Ondansetron HCl (Zofran Inj) 4 mg IVP Q6H PRN PRN Reason: Nausea/Vomiting Last Admin: 09/06/18 18:31 Dose: 4 mg Pantoprazole Sodium (Protonix Ec Tab) 40 mg PO 0600,1600 [facility] Last Admin: 09/07/18 05:35 Dose: 40 mg Polyethylene Glycol (Miralax) 17 gm PO BID [facility] Last Admin: 09/07/18 09:16 Dose: 17 gm Roflumilast (Daliresp) 500 mcg PO DAILY [facility] Last Admin: 09/07/18 09:16 Dose: 500 mcg Tramadol HCl (Ultram) 50 mg PO TID PRN PRN Reason: Pain, moderate (4-7) Last Admin: 09/06/18 18:34 Dose: 50 mg - Labs Labs: 09/06/18 07:45 09/06/18 07:45 PT 10.9 SECONDS (9.4-12.5) 08/31/18 16:50 INR 0.98 08/31/18 16:50 APTT 30.3 Seconds (26.9-38.3) 08/31/18 16:50 - Constitutional Appears: No Acute Distress, Chronically Ill - Head Exam Head Exam: ATRAUMATIC, NORMOCEPHALIC - Eye Exam Eye Exam: EOMI. absent: Scleral icterus - ENT Exam ENT Exam: Mucous Membranes Moist, Normal Oropharynx - Respiratory Exam Respiratory Exam: air movement improved, no wheezing noted - Cardiovascular Exam Cardiovascular Exam: +S1, +S2. absent: Gallop, Rubs - GI/Abdominal Exam GI & Abdominal Exam: Soft, Normal Bowel Sounds. absent: Tenderness - Extremities Exam Extremities Exam: absent: Calf Tenderness - Neurological Exam Neurological Exam: Alert, Awake, Oriented x3 - Psychiatric Exam Psychiatric exam: Normal Affect, Normal Mood - Skin Skin Exam: Dry, Warm Assessment and Plan - Assessment and Plan (Free Text) Assessment: 63-year-old male with a past medical history of COPD, emphysema, asthma, GERD, previous gastric ulcers who presented for complaints of acute shortness of breath, found to have an acute exacerbation of his COPD. Plan: 1. Acute exacerbation of chronic obstructive pulmonary disease 2. Bronchitis 3. Anxiety 4. Chronic back pain 5. GERD 6. Hypertension 7. Metabolic alkalosis 8. Hyperkalemia - resolved Respiratory status continues to slowly improve every day. Pulmonology following, recommendations appreciated. Down from Solu-Medrol 40q8 to 20q8. Continue with montelukast. Continue with Roflumilast. Continue as needed nebulizers. Continue Mucomyst and Mucinex. On azithromycin and Vantin for bronchitis. Pain well controlled on tramadol. Will continue. Continue GI and DVT prophylaxis with Protonix and Lovenox respectively. Hyperkalemia is resolved. Continue to monitor closely. Patient was seen and examined and case was discussed with attending physician. <Hugh Allison S - Last Filed: 09/07/18 21:23> Objective - Vital Signs/Intake and Output Vital Signs (last 24 hours): Temp Pulse Resp BP Pulse Ox 98 F 81 18 143/86 91 L 09/07/18 16:27 09/07/18 16:27 09/07/18 16:27 09/07/18 16:27 09/07/18 16:27 - Medications Medications: Current Medications Acetylcysteine (Acetylcysteine 20%) 4 ml IH BIDRESP [facility] Last Admin: 09/07/18 20:09 Dose: 4 ml Albuterol/Ipratropium (Duoneb 3 Mg/0.5 Mg (3 Ml) Ud) 3 ml IH [id number] Last Admin: 09/07/18 20:09 Dose: 3 ml Albuterol/Ipratropium (Duoneb 3 Mg/0.5 Mg (3 Ml) Ud) 3 ml IH Q2H PRN PRN Reason: Shortness of Breath Last Admin: 09/05/18 05:47 Dose: 3 ml Alprazolam (Xanax) 0.125 mg PO Q8 PRN; Protocol PRN Reason: Anxiety Stop: 09/08/18 14:31 Last Admin: 09/06/18 18:30 Dose: 0.125 mg Azithromycin (Zithromax) 250 mg PO DAILY [facility]; Protocol Last Admin: 09/07/18 09:16 Dose: 250 mg Cefpodoxime Proxetil (Vantin) 200 mg PO Q12 [facility] Last Admin: 09/07/18 09:16 Dose: 200 mg Enoxaparin Sodium (Lovenox) 40 mg SC DAILY [facility]; Protocol Last Admin: 09/07/18 09:16 Dose: 40 mg Furosemide (Lasix) 20 mg PO DAILY [facility] Last Admin: 09/07/18 09:16 Dose: 20 mg Guaifenesin/Dextromethorphan (Mucinex-Dm 600-30 Mg) 1 tab PO BID [facility] Last Admin: 09/07/18 17:19 Dose: 1 tab Methylprednisolone (Solu-Medrol) 20 mg IVP Q8 [facility] Last Admin: 09/07/18 14:17 Dose: 20 mg Metoprolol Tartrate (Lopressor) 12.5 mg PO BRKDIN [facility] Last Admin: 09/07/18 17:18 Dose: 12.5 mg Montelukast Sodium (Singulair) 10 mg PO HS [facility] Last Admin: 09/06/18 21:24 Dose: 10 mg Ondansetron HCl (Zofran Inj) 4 mg IVP Q6H PRN PRN Reason: Nausea/Vomiting Last Admin: 09/06/18 18:31 Dose: 4 mg Pantoprazole Sodium (Protonix Ec Tab) 40 mg PO 0600,1600 [facility] Last Admin: 09/07/18 17:18 Dose: 40 mg Polyethylene Glycol (Miralax) 17 gm PO BID [facility] Last Admin: 09/07/18 17:19 Dose: 17 gm Roflumilast (Daliresp) 500 mcg PO DAILY [facility] Last Admin: 09/07/18 09:16 Dose: 500 mcg Tramadol HCl (Ultram) 50 mg PO TID PRN PRN Reason: Pain, moderate (4-7) Last Admin: 09/07/18 16:39 Dose: 50 mg - Labs Labs: 09/06/18 07:45 09/06/18 07:45 PT 10.9 SECONDS (9.4-12.5) 08/31/18 16:50 INR 0.98 08/31/18 16:50 APTT 30.3 Seconds (26.9-38.3) 08/31/18 16:50 Assessment and Plan - Assessment and Plan (Free Text) Plan: Pt seen and examined by me. I have reviewed the note of the biomedical equipment specialist and I agree with it. I have discussed the assessment and plan with the resident. I have reviewed the medications and the last labs.
--- NOTE | 2018-09-08 00:58 | PN ---
DATE: 09/07/2018 The patient has no complaints of any chest pain. No headaches. Shortness of breath is currently improving. The patient was seen and examined. I do agree with the note of the claim review medical director. I was involved in the plan of care. The patient had an acute COPD exacerbation. He has better air entry. His congestion is better. He is not wheezing today compared to the last two days. His bronchitis is improved. He is on Zithromax and Vantin. The patient is on tramadol for his pain. He is receiving Protonix for his GI prophylaxis. He is on Lovenox for DVT prophylaxis. His Solu-Medrol has been tapered. He is being followed by Pulmonary. I did speak to the patient's to give her an update on the patient's diagnosis and plan of care. Hugh Allison MD
[2018-09-08] MEDS: Albuterol-Ipratrop 3 mg / 0.5 (3 ml) UD IH SCH ×4 (01:03→19:00)
[2018-09-08] MEDS: MethylPREDNISolone 40 mg Vial IVP SCH ×3 (05:25→23:16)
[2018-09-08] MEDS: Pantoprazole 40 mg EC Tab PO SCH ×2 (05:25→17:19)
[2018-09-08 06:03] LABS: BASO # 0.01 K/mm3 (0.0-2.0); BASO % 0.1 % (0.0-3.0); EOS % 0.1 % (1.5-5.0); HEMOGLOBIN 14.4 g/dL (14.0-18.0); LYMPH # 1.7 (1.2-3.4); LYMPH % 10.5 % (22.0-35.0); MEAN CELL VOLUME 93.8 fl (80.0-105.0); MEAN CORPUSCULAR HEMOGLOBIN 30.6 pg (25.0-35.0); MEAN CORPUSCULAR HGB CONC 32.7 g/dl (31.0-37.0); MEAN PLATELET VOLUME 9.3 fl (7.0-11.0); MONO # 1.5 (0.1-0.6); MONO % 9.3 % (1.0-6.0); RBC 4.7 10^6/uL (3.5-6.1); RED CELL DISTRIBUTION WIDTH 12.9 % (11.5-14.5); WHITE BLOOD COUNT 16.5 10^3/uL (4.5-11.0)
[2018-09-08 06:23] LABS: ALB/GLOB RATIO 1.3 (1.1-1.8); ALBUMIN 3.7 g/dL (3.0-4.8); ALT/SGPT 33 U/L (7-56); AST/SGOT 24 U/L (17-59); BLOOD UREA NITROGEN 18 mg/dL (7-21); CALCIUM 8.5 mg/dL (8.4-10.5); GFR NON-AFRICAN AMERICAN > 60
[2018-09-08] MEDS: Acetylcysteine 20% Inhal Soln (4ml) IH SCH ×2 (07:36→19:00)
[2018-09-08] MEDS: POLYETHYLENE GLYCOL 3350 17 GM/Dose PACKET PO SCH ×2 (09:20→17:19)
[2018-09-08] MEDS: Enoxaparin 40 mg Syringe SC SCH (09:21)
[2018-09-08] MEDS: Cefpodoxime (Vantin) 200 mg Tab PO SCH ×2 (09:21→21:43)
[2018-09-08] MEDS: guaiFENesin-DM 600-30 mg ER Tab PO SCH ×2 (09:21→17:19)
--- NOTE | 2018-09-08 10:47 | PN ---
DATE: 09/08/2018 PULMONARY PROGRESS NOTE REFERRING PHYSICIAN: Dr. Allison. SUBJECTIVE: The patient is seen sitting up at bedside. present. No acute distress. No overnight events reported. The patient reports taking a walk around the unit yesterday and only had desaturation in oxygen to about 92% on room air with exertion. Reports feeling well today. Cough and shortness of breath have improved although he still does have occasional shortness of breath. No headache, rhinitis, chest pain, abdominal pain, nausea, vomiting, diarrhea, leg pain, leg swelling reported. OBJECTIVE: GENERAL: No acute distress. VITAL SIGNS: Blood pressure 150/85, pulse 75, temperature 97.2, and oxygen saturation 94% on room air. HEENT: Moist mucous membranes. Mallampati score of 4. Crowded airway. NECK: Supple. No JVD. LUNGS: Few scattered rhonchi, mild wheezing at bases. CARDIOVASCULAR: S1, S2. ABDOMEN: Soft, nontender. No distention. EXTREMITIES: No bilateral lower extremity edema. NEUROLOGIC: Awake, alert, and verbal. Following commands. MEDICATIONS: Reviewed. Mucomyst 4 mL inhalation twice a day, DuoNeb 3 mL inhalation every 6 hours, DuoNeb 3 mL inhalation every 2 hours p.r.n., Xanax 0.125 mg every 8 hours p.r.n., Zithromax 250 p.o. daily, Vantin 200 mg every 12 hours, Lovenox 40 mg subcu daily, Lasix 40 mg daily, Mucinex DM one tab twice a day, Solu-Medrol 20 mg IV push every 8 hours, metoprolol tartrate 12.5 mg breakfast and dinner, Singulair 10 mg h.s., Zofran 4 mg IV push every 6 hours p.r.n., Protonix 40 mg twice a day, MiraLax 17 g twice a day, Daliresp 500 mcg daily, and tramadol 50 mg three times a day p.r.n. LABORATORY DATA: Reviewed. WBC is 16.5, RBC is 4.70, hemoglobin 14.4, hematocrit 44.1, platelets 300. Sodium 139, potassium 5.3, chloride 98, carbon dioxide 35, anion gap 12, BUN 18, creatinine 0.7, GFR greater than 60, random glucose 173, calcium 8.5, phosphorous 3.4, magnesium 2.4, total bilirubin 1, AST 24, ALT 33, alkaline phosphatase 55, total protein 6.6, albumin 3.7, globulin 2.9, albumin globulin ratio 1.3. IMPRESSION AND PLAN: Chronic obstructive lung disease exacerbation, gastroesophageal reflux disease, gastric ulcer, hyperdynamic left heart, obstructive sleep apnea syndrome, emphysema. Pulmonary point of view, continue inhaled bronchodilators. Continue antibiotic therapy, gastric prophylaxis, deep venous thrombosis prophylaxis. Continue current steroid dosing. Steroids were decreased yesterday. This morning noted with mild wheeze although patient clinically appears improved. Will evaluate patient tomorrow and attempt further decrease of steroids at that time. Fall precautions, sleep apnea precautions, head of bed elevated at 45 degrees. Recommend the patient have full pulmonary function test as outpatient. Recommend the patient have sleep study as outpatient to evaluate sleep apnea syndrome. The patient was seen and examined with Dr. Wade. Discussed assessment and plan as described above. The patient was seen and examined with Amanda Vasquez, Nurse Practitioner. Discussed assessment and plan as described above. Thank you for this consult. We will follow with you. Amanda Vasquez APN Asia Wade MD [facility]
--- NOTE | 2018-09-08 12:28 | CP.PCM.PN ---
<Oseas Arreaga - Last Filed: 09/08/18 12:22> Subjective - Date & Time of Evaluation Date of Evaluation: 09/08/18 Time of Evaluation: 06:30 - Subjective Subjective: Oseas Arreaga D.O. PGY-3, Internal Medicine Resident, Dr. Allison's Service, Progress Note 63-year-old male with a past medical history of COPD, emphysema, asthma, GERD, previous gastric ulcers who presented for complaints of acute shortness of breath, found to have an acute exacerbation of his COPD. Patient was seen and examined at bedside. Happy he was able to tolerate 6m walk test yesterday. Breathing improving. Moved bowels twice yesterday. Objective - Vital Signs/Intake and Output Vital Signs (last 24 hours): Temp Pulse Resp BP Pulse Ox 97.2 F L 75 18 150/85 94 L 09/08/18 06:00 09/08/18 08:38 09/08/18 06:00 09/08/18 09:21 09/08/18 06:00 Intake and Output: 09/08/18 09/08/18 06:59 18:59 Intake Total 1320 Balance 1320 - Medications Medications: Current Medications Acetylcysteine (Acetylcysteine 20%) 4 ml IH BIDRESP [facility] Last Admin: 09/08/18 07:36 Dose: 4 ml Albuterol/Ipratropium (Duoneb 3 Mg/0.5 Mg (3 Ml) Ud) 3 ml IH [id number] Last Admin: 09/08/18 07:36 Dose: 3 ml Albuterol/Ipratropium (Duoneb 3 Mg/0.5 Mg (3 Ml) Ud) 3 ml IH Q2H PRN PRN Reason: Shortness of Breath Last Admin: 09/05/18 05:47 Dose: 3 ml Alprazolam (Xanax) 0.125 mg PO Q8 PRN; Protocol PRN Reason: Anxiety Stop: 09/08/18 14:31 Last Admin: 09/06/18 18:30 Dose: 0.125 mg Azithromycin (Zithromax) 250 mg PO DAILY [facility]; Protocol Last Admin: 09/08/18 09:21 Dose: 250 mg Cefpodoxime Proxetil (Vantin) 200 mg PO Q12 [facility] Last Admin: 09/08/18 09:21 Dose: 200 mg Enoxaparin Sodium (Lovenox) 40 mg SC DAILY [facility]; Protocol Last Admin: 09/08/18 09:21 Dose: 40 mg Furosemide (Lasix) 20 mg PO DAILY [facility] Last Admin: 09/08/18 09:21 Dose: 20 mg Guaifenesin/Dextromethorphan (Mucinex-Dm 600-30 Mg) 1 tab PO BID [facility] Last Admin: 09/08/18 09:21 Dose: 1 tab Methylprednisolone (Solu-Medrol) 20 mg IVP Q8 [facility] Last Admin: 09/08/18 05:25 Dose: 20 mg Metoprolol Tartrate (Lopressor) 12.5 mg PO BRKDIN [facility] Last Admin: 09/08/18 08:38 Dose: 12.5 mg Montelukast Sodium (Singulair) 10 mg PO HS [facility] Last Admin: 09/07/18 22:19 Dose: 10 mg Ondansetron HCl (Zofran Inj) 4 mg IVP Q6H PRN PRN Reason: Nausea/Vomiting Last Admin: 09/06/18 18:31 Dose: 4 mg Pantoprazole Sodium (Protonix Ec Tab) 40 mg PO 0600,1600 [facility] Last Admin: 09/08/18 05:25 Dose: 40 mg Polyethylene Glycol (Miralax) 17 gm PO BID [facility] Last Admin: 09/08/18 09:20 Dose: 17 gm Roflumilast (Daliresp) 500 mcg PO DAILY [facility] Last Admin: 09/08/18 09:21 Dose: 500 mcg Tramadol HCl (Ultram) 50 mg PO TID PRN PRN Reason: Pain, moderate (4-7) Last Admin: 09/07/18 16:39 Dose: 50 mg - Labs Labs: 09/08/18 05:20 09/08/18 05:20 PT 10.9 SECONDS (9.4-12.5) 08/31/18 16:50 INR 0.98 08/31/18 16:50 APTT 30.3 Seconds (26.9-38.3) 08/31/18 16:50 - Constitutional Appears: No Acute Distress, Chronically Ill - Head Exam Head Exam: ATRAUMATIC, NORMOCEPHALIC - Eye Exam Eye Exam: EOMI. absent: Scleral icterus - ENT Exam ENT Exam: Mucous Membranes Moist, Normal Oropharynx - Respiratory Exam Respiratory Exam: air movement improving, no wheezing - Cardiovascular Exam Cardiovascular Exam: +S1, +S2. absent: Gallop, Rubs - GI/Abdominal Exam GI & Abdominal Exam: Soft, Normal Bowel Sounds. absent: Tenderness - Extremities Exam Extremities Exam: absent: Calf Tenderness - Neurological Exam Neurological Exam: Alert, Awake, Oriented x3 - Psychiatric Exam Psychiatric exam: Normal Affect, Normal Mood - Skin Skin Exam: Dry, Warm Assessment and Plan - Assessment and Plan (Free Text) Assessment: 63-year-old male with a past medical history of COPD, emphysema, asthma, GERD, previous gastric ulcers who presented for complaints of acute shortness of breath, found to have an acute exacerbation of his COPD. Plan: 1. Acute exacerbation of chronic obstructive pulmonary disease 2. Bronchitis 3. Anxiety 4. Chronic back pain 5. GERD 6. Hypertension 7. Metabolic alkalosis 8. Hyperkalemia - resolved Respiratory status improving. Patient was able to pass a 6-minute walk test yesterday therapy with desaturation only down to 92%. Able to now be without oxygen. Continue with Solu-Medrol 20 mg IV every 8, Singulair, Roflumilast, Mucomyst and as needed and scheduled nebulizer treatments for his COPD. Pulmonary on consult and the recommendations were reviewed and appreciated. For his bronchitis he is currently on Vantin and Zithromax. With furosemide which has improved his breathing as well. Continue metoprolol 12.5 mg p.o. for his hypertension. Continue Protonix for his GERD. Continue tramadol for back pain. Continue with MiraLAX for his constipation. Patient was seen and examined and case was discussed with attending physician. <Hugh Allison S - Last Filed: 09/08/18 16:27> Objective - Vital Signs/Intake and Output Vital Signs (last 24 hours): Temp Pulse Resp BP Pulse Ox 97.2 F L 75 18 150/85 94 L 09/08/18 06:00 09/08/18 08:38 09/08/18 06:00 09/08/18 09:21 09/08/18 06:00 Intake and Output: 09/08/18 09/08/18 06:59 18:59 Intake Total 1320 Balance 1320 - Medications Medications: Current Medications Acetylcysteine (Acetylcysteine 20%) 4 ml IH BIDRESP [facility] Last Admin: 09/08/18 07:36 Dose: 4 ml Albuterol/Ipratropium (Duoneb 3 Mg/0.5 Mg (3 Ml) Ud) 3 ml IH [id number] [facility] Last Admin: 09/08/18 13:32 Dose: 3 ml Albuterol/Ipratropium (Duoneb 3 Mg/0.5 Mg (3 Ml) Ud) 3 ml IH Q2H PRN PRN Reason: Shortness of Breath Last Admin: 09/05/18 05:47 Dose: 3 ml Azithromycin (Zithromax) 250 mg PO DAILY [facility]; Protocol Last Admin: 09/08/18 09:21 Dose: 250 mg Cefpodoxime Proxetil (Vantin) 200 mg PO Q12 [facility] Last Admin: 09/08/18 09:21 Dose: 200 mg Enoxaparin Sodium (Lovenox) 40 mg SC DAILY [facility]; Protocol Last Admin: 09/08/18 09:21 Dose: 40 mg Furosemide (Lasix) 20 mg PO DAILY [facility] Last Admin: 09/08/18 09:21 Dose: 20 mg Guaifenesin/Dextromethorphan (Mucinex-Dm 600-30 Mg) 1 tab PO BID [facility] Last Admin: 09/08/18 09:21 Dose: 1 tab Methylprednisolone (Solu-Medrol) 20 mg IVP Q8 [facility] Last Admin: 09/08/18 13:36 Dose: 20 mg Metoprolol Tartrate (Lopressor) 12.5 mg PO BRKDIN [facility] Last Admin: 09/08/18 08:38 Dose: 12.5 mg Montelukast Sodium (Singulair) 10 mg PO HS [facility] Last Admin: 09/07/18 22:19 Dose: 10 mg Ondansetron HCl (Zofran Inj) 4 mg IVP Q6H PRN PRN Reason: Nausea/Vomiting Last Admin: 09/06/18 18:31 Dose: 4 mg Pantoprazole Sodium (Protonix Ec Tab) 40 mg PO 0600,1600 [facility] Last Admin: 09/08/18 05:25 Dose: 40 mg Polyethylene Glycol (Miralax) 17 gm PO BID [facility] Last Admin: 09/08/18 09:20 Dose: 17 gm Roflumilast (Daliresp) 500 mcg PO DAILY [facility] Last Admin: 09/08/18 09:21 Dose: 500 mcg Tramadol HCl (Ultram) 50 mg PO TID PRN PRN Reason: Pain, moderate (4-7) Last Admin: 09/07/18 16:39 Dose: 50 mg - Labs Labs: 09/08/18 05:20 09/08/18 05:20 PT 10.9 SECONDS (9.4-12.5) 08/31/18 16:50 INR 0.98 08/31/18 16:50 APTT 30.3 Seconds (26.9-38.3) 08/31/18 16:50 Assessment and Plan - Assessment and Plan (Free Text) Plan: Pt seen and examined by me. I have reviewed the note of the medical logistics specialist and I agree with it. I have discussed the assessment and plan with the resident. I have reviewed the medications and the last labs.
--- NOTE | 2018-09-08 19:29 | PN ---
DATE: 09/08/2018 SUBJECTIVE: The patient was seen and examined. I do agree with the note of the medical lab assistant. I was involved in the plan of care. The patient has acute COPD exacerbation. He is feeling better. He is able to ambulate better and has less shortness of breath. He currently is on nebulizer treatments as well as Solu-Medrol. He also has a bronchitis that is improving. His Solu-Medrol is being tapered. He is currently on Vantin and Zithromax for his antibiotics. The patient is on metoprolol. He is going to continue with Protonix for his GERD. He has hypokalemia, this will be followed. The patient's white count remains elevated most likely from steroids, he maybe steroids that he is on. The patient is eating well. He has blood cultures that have been negative. He is on MiraLax for his constipation. He is on a heart-healthy diet. Hugh Allison MD
[2018-09-09] MEDS: MethylPREDNISolone 40 mg Vial IVP SCH ×3 (05:45→21:15)
[2018-09-09] MEDS: Pantoprazole 40 mg EC Tab PO SCH ×2 (05:46→16:43)
[2018-09-09 06:54] LABS: ALB/GLOB RATIO 1.3 (1.1-1.8); ALBUMIN 3.6 g/dL (3.0-4.8); ALT/SGPT 37 U/L (7-56); AST/SGOT 21 U/L (17-59); BLOOD UREA NITROGEN 15 mg/dL (7-21); CALCIUM 8.4 mg/dL (8.4-10.5); GFR NON-AFRICAN AMERICAN > 60
[2018-09-09 07:03] LABS: BASO # 0.01 K/mm3 (0.0-2.0); BASO % 0.1 % (0.0-3.0); HEMOGLOBIN 14.2 g/dL (14.0-18.0); LYMPH # 1.3 (1.2-3.4); LYMPH % 8.6 % (22.0-35.0); MEAN CELL VOLUME 93.4 fl (80.0-105.0); MEAN CORPUSCULAR HEMOGLOBIN 30.3 pg (25.0-35.0); MEAN CORPUSCULAR HGB CONC 32.5 g/dl (31.0-37.0); MEAN PLATELET VOLUME 9.4 fl (7.0-11.0); MONO # 1.2 (0.1-0.6); MONO % 7.9 % (1.0-6.0); RBC 4.68 10^6/uL (3.5-6.1); RED CELL DISTRIBUTION WIDTH 13.1 % (11.5-14.5); WHITE BLOOD COUNT 15.5 10^3/uL (4.5-11.0)
[2018-09-09] MEDS: Acetylcysteine 20% Inhal Soln (4ml) IH SCH ×2 (08:05→19:51)
[2018-09-09] MEDS: Albuterol-Ipratrop 3 mg / 0.5 (3 ml) UD IH SCH ×3 (08:06→19:39)
[2018-09-09] MEDS: Enoxaparin 40 mg Syringe SC SCH (09:40)
[2018-09-09] MEDS: guaiFENesin-DM 600-30 mg ER Tab PO SCH ×2 (09:41→18:00)
[2018-09-09] MEDS: Cefpodoxime (Vantin) 200 mg Tab PO SCH ×2 (09:41→21:14)
[2018-09-09] MEDS: POLYETHYLENE GLYCOL 3350 17 GM/Dose PACKET PO SCH ×2 (09:41→17:59)
--- NOTE | 2018-09-09 10:43 | PN ---
DATE: 09/09/2018 PULMONARY PROGRESS NOTE REFERRING PHYSICIAN: Dr. Allison. SUBJECTIVE: The patient is seen sitting up at bedside. No acute distress. No overnight events reported. Reports feeling well today. Has some productive cough and shortness of breath with exertion, but reports they have improved. No headache, rhinitis, chest pain, abdominal pain, nausea, vomiting, diarrhea, leg pain, or leg swelling reported. The patient also reports having bowel movement. OBJECTIVE: VITAL SIGNS: Blood pressure 127/65, pulse 79, temperature 98, and oxygen saturation 94 on room air. GENERAL: No acute distress. HEENT: Moist mucous membranes. Mallampati score of 4. Crowded airway. NECK: Supple. No JVD. LUNGS: Improved air flow bilaterally. No audible wheezing. Few scattered rhonchi. CARDIOVASCULAR: S1, S2. ABDOMEN: Soft, nontender. No distention. EXTREMITIES: No bilateral lower extremity edema. NEUROLOGIC: Awake, alert, and verbal. Following commands. MEDICATIONS: Reviewed. Mucomyst 4 mL inhalation twice a day, DuoNeb 3 mL inhalation every 6 hours, DuoNeb 3 mL inhalation every 2 hours p.r.n., Zithromax 250 mg daily, Vantin 200 mg every 12 hours, Lovenox 40 mg subcutaneous daily, Lasix 20 mg daily, Mucinex DM tablet twice a day, Solu-Medrol 20 mg IV push every 8 hours, metoprolol tartrate 12.5 mg at breakfast and dinner, Singulair 10 mg at bedtime, Zofran 4 mg every 6 hours p.r.n., Protonix 40 mg twice a day, MiraLax 17 g twice a day, Daliresp 500 mcg daily, and tramadol 50 mg p.o. three times a day p.r.n. LABORATORY DATA: Reviewed. WBC 16.5, RBC is 4.6, hemoglobin 14.2, hematocrit 43.7, platelets 309. Sodium 139, potassium 4.6, chloride 100, carbon dioxide 31, anion gap 12, BUN 15, creatinine 0.7, GFR greater than 60, random glucose 118, calcium 8.4, phosphorous 4, magnesium 2.8, total bilirubin 0.7, AST 21, ALT 37, alkaline phosphatase 50, total protein 6.4, albumin 3.6, globulin 2.7, albumin globulin ratio 1.3. IMPRESSION AND PLAN: Chronic obstructive lung disease exacerbation, gastroesophageal reflux disease, gastric ulcer, hyperdynamic left heart, obstructive sleep apnea syndrome, emphysema. Pulmonary point of view, continue inhaled bronchodilators. Continue antibiotic therapy. Deep venous thrombosis prophylaxis, gastric prophylaxis. We will decrease Solu-Medrol to 20 mg every 12 hours. Sleep apnea precautions. Head of bed elevated at 45 degrees. Fall precautions. Recommend the patient to have full pulmonary function test as outpatient to evaluate extent of chronic lung disease. Recommend the patient to have sleep study as outpatient to evaluate sleep apnea syndrome. The patient was seen and examined with Dr. Wade. Discussed assessment and plan as described above. The patient was seen and examined with Amanda Vasquez APN, nurse practitioner. Discussed assessment and plan as described above. Thank you for this consult. We will follow with you. Amanda Vasquez APN Asia Wade MD
--- NOTE | 2018-09-09 14:41 | PN ---
DATE: 09/09/2018 SUBJECTIVE: The patient has no complaints of any chest pain. He says his shortness of breath is improving. He has no headaches or dizziness. PHYSICAL EXAMINATION: VITAL SIGNS: Temperature is 98, pulse of 79, blood pressure 127/65, respirations 20. GENERAL: The patient is lying in bed, flat, comfortable. HEENT: No oral lesion. Anicteric sclerae. Moist mucosa. NECK: No JVD, adenopathy, or thyromegaly. CARDIOVASCULAR: S1 and S2, regular. No murmurs, rubs, or gallops. LUNGS: Clear to auscultation bilaterally. No wheeze, rales, or rhonchi. ABDOMEN: Bowel sounds are positive, soft, nontender and nondistended. EXTREMITIES: no cyanosis, clubbing or edema. LABS: Last white count of 15.5, creatinine is 4.6. ASSESSMENT: 1. Acute chronic obstructive pulmonary disease. 2. Bronchitis. 3. Anxiety. 4. Chronic back pain. 5. Gastroesophageal reflux disease. 6. Hypertension. 7. Hypokalemia, improved. PLAN: The patient continues on his for his chronic obstructive pulmonary disease. He is on roflumilast 500 mcg daily. He is going to be on nebulizer treatments with albuterol. The patient is on Lovenox for deep venous thrombosis prophylaxis. He is receiving Solu-Medrol 20 mg, being tapered. The patient has Vantin for antibiotics as well as Zithromax. He is on a heart-healthy diet. I did speak to the patient's at the bedside to give her an update. He is clinically feeling better. Hugh Allison MD
[2018-09-10] MEDS: Albuterol-Ipratrop 3 mg / 0.5 (3 ml) UD IH SCH ×4 (01:58→19:28)
[2018-09-10] MEDS: Pantoprazole 40 mg EC Tab PO SCH ×2 (05:23→18:16)
[2018-09-10] MEDS: Acetylcysteine 20% Inhal Soln (4ml) IH SCH ×2 (07:48→19:27)
--- NOTE | 2018-09-10 08:40 | PN ---
DATE: 09/10/2018 PULMONARY PROGRESS NOTE REFERRING PHYSICIAN: Dr. Allison. SUBJECTIVE: The patient seen, lying in bed. No acute distress. No overnight events reported. Reports feeling well today. States the shortness of breath has improved. Still has some coughing. No headache, rhinitis, chest pain, abdominal pain, nausea, vomiting, diarrhea, leg pain, leg swelling reported. The patient reports having bowel movements. PHYSICAL EXAMINATION: VITAL SIGNS: Blood pressure 148/74, pulse 82, oxygen saturation 97 on room air, temperature 98. GENERAL: No acute distress. HEENT: Moist mucous membranes. Mallampati score of 4. Crowded airway. NECK: Supple. No JVD. LUNGS: Fair airflow bilaterally. Mild wheezes. CARDIOVASCULAR: S1, S2. ABDOMEN: Soft, nontender. No distention. No organomegaly. EXTREMITIES: No bilateral lower extremity edema. NEUROLOGIC: Awake, alert, and verbal. Following commands. MEDICATIONS: Reviewed. Mucomyst 4 mL inhalation twice a day, DuoNeb 3 mL inhalation every 6 hours, DuoNeb 3 mL inhalation every 2 hours p.r.n., Zithromax 250 mg daily, Vantin 200 mg every 12 hours, Lovenox 40 mg subcutaneous daily, Lasix 20 mg daily, Mucinex DM one tablet twice a day, Solu-Medrol 20 mg every 12 hours, metoprolol tartrate 12.5 mg at breakfast and dinner, Singulair 10 mg at bedtime, Zofran 4 mg IV push every 6 hours p.r.n., Protonix 40 mg twice a day, MiraLax 17 g twice a day, Daliresp 500 mcg daily, Ultram 50 mg 3 times a day p.r.n. LABORATORY DATA: Reviewed. IMPRESSION AND PLAN: Chronic obstructive lung disease exacerbation, gastroesophageal reflux disease, gastric ulcer, hyperdynamic left heart, obstructive sleep apnea syndrome, emphysema. Pulmonary point of view, continue inhaled bronchodilators. Continue antibiotic therapy. Deep venous thrombosis prophylaxis, gastric prophylaxis. Suspect sleep apnea in this patient. Recommend sleep apnea precautions. Head of bed elevated at 45 degrees. Fall precautions. Recommend the patient to have full pulmonary function test as outpatient to evaluate extent of chronic lung disease. Recommend the patient to have sleep study as outpatient to evaluate sleep apnea syndrome. Recommend patient be sent home on [employer] Ellipta inhaler upon discharge home. The patient was seen and examined with Dr. Wade. Discussed assessment and plan as described above. The patient was seen and examined with Amanda Vasquez, nurse practitioner. Discussed assessment and plan as described above. Thank you for this consult. We will follow with you. Amanda Vasquez APN Asia Wade MD [facility]
[2018-09-10] MEDS: Enoxaparin 40 mg Syringe SC SCH (09:14)
[2018-09-10] MEDS: MethylPREDNISolone 40 mg Vial IVP SCH ×2 (09:16→21:24)
[2018-09-10] MEDS: POLYETHYLENE GLYCOL 3350 17 GM/Dose PACKET PO SCH ×2 (09:16→18:16)
[2018-09-10] MEDS: guaiFENesin-DM 600-30 mg ER Tab PO SCH ×2 (09:16→18:16)
[2018-09-10] MEDS: Cefpodoxime (Vantin) 200 mg Tab PO SCH ×2 (09:17→21:24)
--- NOTE | 2018-09-10 13:42 | PN ---
DATE: 09/10/2018 SUBJECTIVE: The patient is 63 years old. Awake, alert, oriented and communicative. Sitting on the edge of the bed. Doing very well. He states his cough and congestion is much better. PHYSICAL EXAMINATION: VITAL SIGNS: He is afebrile, pulse 72, respiration 18 and blood pressure 137/65. LUNGS: Bilateral diffusely decreased breath sound. HEART: S1 and S2, audible. ABDOMEN: Soft and nontender. No rebound. No guarding. NEUROLOGIC: The patient is awake, alert, oriented and communicative. Ambulatory. EXTREMITIES: Bilateral leg no edema. LABORATORY DATA: Sodium 139, potassium 4.6, chloride 100, CO2 of 31, BUN 15, creatinine 0.7 and blood sugar of 115. Blood cultures are negative. ASSESSMENT: 1. Chronic obstructive pulmonary disease, exacerbation. 2. Asthmatic bronchitis. 3. Chronic back pain. 4. Peptic ulcer disease. 5. Hypertension. 6. Electrolyte imbalance that has improved. PLAN: Currently, the patient is on Daliresp. He is on nebulizer treatment for maintaining on that. He is on metoprolol. He is on DVT prophylaxis. He is on Protonix. He is on prednisone and his antibiotic has been switched to p.o. Encourage ambulation. Possible discharge planning. Lety Dunn MD
[2018-09-11] MEDS: Albuterol-Ipratrop 3 mg / 0.5 (3 ml) UD IH SCH ×4 (01:13→20:14)
[2018-09-11] MEDS: Pantoprazole 40 mg EC Tab PO SCH ×2 (05:43→16:07)
[2018-09-11] MEDS: Acetylcysteine 20% Inhal Soln (4ml) IH SCH ×2 (07:38→20:14)
[2018-09-11 09:01] VITALS: RESP 20
[2018-09-11] MEDS: MethylPREDNISolone 40 mg Vial IVP SCH (09:55)
[2018-09-11] MEDS: guaiFENesin-DM 600-30 mg ER Tab PO SCH ×2 (09:55→19:17)
[2018-09-11] MEDS: Enoxaparin 40 mg Syringe SC SCH (09:58)
[2018-09-11] MEDS: POLYETHYLENE GLYCOL 3350 17 GM/Dose PACKET PO SCH ×2 (09:58→19:16)
[2018-09-11] MEDS: Cefpodoxime (Vantin) 200 mg Tab PO SCH ×2 (09:58→21:31)
--- NOTE | 2018-09-11 14:27 | PN ---
DATE: 09/11/2018 PULMONARY PROGRESS NOTE REFERRING PHYSICIAN: Dr. Allison. SUBJECTIVE: The patient is seen sitting at the edge of bed. No acute distress. Reports improvement in shortness of breath and cough. He states that this morning, while sleeping, his vital signs were checked and his oxygen saturation was noted at 91% on room air; the patient states that he was asleep. When he woke up, vital signs were rechecked and later in the morning showed oxygen saturation 94% and then again 97% on room air. PHYSICAL EXAMINATION: GENERAL: No acute distress. VITAL SIGNS: Blood pressure 134/72, pulse 100, temperature 98.5. Oxygen saturation 97% on room air. HEENT: Moist mucous membranes. Mallampati score 4. Crowded airways. NECK: Supple. No JVD. LUNGS: Fair air flow bilaterally CARDIOVASCULAR: S1 and S2. ABDOMEN: Soft, nontender. No distention. No organomegaly. EXTREMITIES: No bilateral lower extremity edema. NEUROLOGICAL: Awake, alert and verbal. Following commands. MEDICATIONS: Reviewed. Mucomyst 4 mL inhalation twice a day, DuoNeb 3 mL inhalation every 6 hours, DuoNeb 3 mL inhalation every 2 hours p.r.n., Xanax 0.125 mg every eight hours p.r.n., Vantin 200 mg every 12 hours, Lovenox 40 mg subcutaneous daily, Lasix 20 mg daily, Mucinex DM one tablet twice a day, Solu-Medrol 20 mg IV push every 12 hours, metoprolol tartrate 12.5 mg breakfast and dinner, Singulair 10 mg at bedtime, Zofran 4 mg IV push every 6 hours p.r.n., Protonix 40 mg twice a day, MiraLax 17 g twice a day, Daliresp 500 mcg daily, Ultram 50 mg three times a day p.r.n. LABORATORY DATA: Reviewed. No new labs. IMPRESSION AND PLAN: Chronic obstructive lung disease exacerbation, gastroesophageal reflux disease, gastric ulcer, hypodynamic left heart, obstructive sleep apnea syndrome, lymphedema. Pulmonary point of view, continue the bronchodilators. Continue antibiotic therapy, deep venous thrombosis prophylaxis, gastric prophylaxis, sleep apnea precautions, suspect sleep syndrome in this patient. Head of bed elevated 45 degrees. Fall precautions. Recommend the patient have full pulmonary function test as outpatient to evaluate extent of chronic lung disease. Recommend patient have sleep study as outpatient to evaluate sleep apnea syndrome. Recommend patient be sent home on [employer] Ellipta inhaler and Medrol dose pack upon discharge. Hypoxemia this morning may be sleep related hypoxia due to patient's chronic lung disease. Will decrease Solu-Medrol to 30mg daily. The patient was seen and examined with Dr. Wade. Discussed assessment and plan as described above. The patient was seen and examined by Amanda Vasquez, nurse practitioner. Discussed assessment and plan as described above. Thank you for this consult. We will follow with you. Amanda Vasquez APN Asia Wade MD [facility]
--- NOTE | 2018-09-11 14:40 | CP.PCM.PN ---
<Oseas Arreaga - Last Filed: 09/11/18 14:36> Subjective - Date & Time of Evaluation Date of Evaluation: 09/11/18 Time of Evaluation: 07:50 - Subjective Subjective: Oseas Arreaga D.O. PGY-3, Internal Medicine Resident, Dr. Allison's Service, Progress Note 63-year-old male with a past medical history of COPD, emphysema, asthma, GERD, previous gastric ulcers who presented for complaints of acute shortness of breath, found to have an acute exacerbation of his COPD. Patient was seen and examined at bedside. Had a desat to 90% at 5am while sleeping. Doing nebulizer now. Objective - Vital Signs/Intake and Output Vital Signs (last 24 hours): Temp Pulse Resp BP Pulse Ox 98.5 F 100 H 20 135/72 94 L 09/11/18 09:00 09/11/18 09:00 09/11/18 09:00 09/11/18 09:55 09/11/18 09:00 Intake and Output: 09/11/18 09/11/18 06:59 18:59 Intake Total 0 Balance 0 - Medications Medications: Current Medications Acetylcysteine (Acetylcysteine 20%) 4 ml IH BIDRESP NUZHAT Last Admin: 09/11/18 07:38 Dose: 4 ml Albuterol/Ipratropium (Duoneb 3 Mg/0.5 Mg (3 Ml) Ud) 3 ml IH [id number] NUZHAT Last Admin: 09/11/18 13:06 Dose: 3 ml Albuterol/Ipratropium (Duoneb 3 Mg/0.5 Mg (3 Ml) Ud) 3 ml IH Q2H PRN PRN Reason: Shortness of Breath Last Admin: 09/05/18 05:47 Dose: 3 ml Alprazolam (Xanax) 0.125 mg PO Q8H PRN; Protocol PRN Reason: Anxiety Stop: 09/18/18 10:31 Last Admin: 09/11/18 10:38 Dose: 0.125 mg Cefpodoxime Proxetil (Vantin) 200 mg PO Q12 [facility] Last Admin: 09/11/18 09:58 Dose: 200 mg Enoxaparin Sodium (Lovenox) 40 mg SC DAILY [facility]; Protocol Last Admin: 09/11/18 09:58 Dose: 40 mg Furosemide (Lasix) 20 mg PO DAILY [facility] Last Admin: 09/11/18 09:55 Dose: 20 mg Guaifenesin/Dextromethorphan (Mucinex-Dm 600-30 Mg) 1 tab PO BID [facility] Last Admin: 09/11/18 09:55 Dose: 1 tab Methylprednisolone (Solu-Medrol) 30 mg IVP DAILY [facility] Metoprolol Tartrate (Lopressor) 12.5 mg PO BRKDIN [facility] Last Admin: 09/11/18 08:13 Dose: 12.5 mg Montelukast Sodium (Singulair) 10 mg PO HS [facility] Last Admin: 09/10/18 21:24 Dose: 10 mg Ondansetron HCl (Zofran Inj) 4 mg IVP Q6H PRN PRN Reason: Nausea/Vomiting Last Admin: 09/06/18 18:31 Dose: 4 mg Pantoprazole Sodium (Protonix Ec Tab) 40 mg PO 0600,1600 [facility] Last Admin: 09/11/18 05:43 Dose: 40 mg Polyethylene Glycol (Miralax) 17 gm PO BID [facility] Last Admin: 09/11/18 09:58 Dose: 17 gm Roflumilast (Daliresp) 500 mcg PO DAILY [facility] Last Admin: 09/11/18 09:55 Dose: 500 mcg Tramadol HCl (Ultram) 50 mg PO TID PRN PRN Reason: Pain, moderate (4-7) Last Admin: 09/11/18 09:56 Dose: 50 mg - Labs Labs: 09/09/18 05:15 09/09/18 05:15 PT 10.9 SECONDS (9.4-12.5) 08/31/18 16:50 INR 0.98 08/31/18 16:50 APTT 30.3 Seconds (26.9-38.3) 08/31/18 16:50 - Constitutional Appears: No Acute Distress, Chronically Ill - Head Exam Head Exam: ATRAUMATIC, NORMOCEPHALIC - Eye Exam Eye Exam: EOMI. absent: Scleral icterus - ENT Exam ENT Exam: Mucous Membranes Moist, Normal Oropharynx - Respiratory Exam Respiratory Exam: decreased air movement, mild wheezing - Cardiovascular Exam Cardiovascular Exam: +S1, +S2. absent: Gallop, Rubs - GI/Abdominal Exam GI & Abdominal Exam: Soft, Normal Bowel Sounds. absent: Tenderness - Extremities Exam Extremities Exam: absent: Calf Tenderness - Neurological Exam Neurological Exam: Alert, Awake, Oriented x3 - Psychiatric Exam Psychiatric exam: Normal Affect, Normal Mood - Skin Skin Exam: Dry, Warm Assessment and Plan - Assessment and Plan (Free Text) Assessment: 63-year-old male with a past medical history of COPD, emphysema, asthma, GERD, previous gastric ulcers who presented for complaints of acute shortness of breath, found to have an acute exacerbation of his COPD. Plan: 1. Acute exacerbation of chronic obstructive pulmonary disease 2. Bronchitis 3. Anxiety 4. Chronic back pain 5. GERD 6. Hypertension 7. Constipation Respiratory status still with some ups and downs. Pulmonology is following, their recommendations are appreciated. Finished a course of azithromycin for his bronchitis. Almost done with a course of Vantin. Continue alprazolam for his anxiety. Continue with nebulizers, guaifenesin/DM, montelukast, and Roflumilast for his COPD. Noted that his methylprednisolone has been reduced now to 30 mg daily. Continue with metoprolol 12.5 mg twice daily for his high blood pressure. Continue with Protonix for his GERD. Continue with MiraLAX for his constipation. Continue with tramadol for his back pain which appears to be controlled at this time. Patient was seen and examined and case was discussed with attending physician. <Hugh Allison S - Last Filed: 09/11/18 17:50> Objective - Vital Signs/Intake and Output Vital Signs (last 24 hours): Temp Pulse Resp BP Pulse Ox 97.9 F 112 H 20 101/65 94 L 09/11/18 17:15 09/11/18 17:15 09/11/18 17:15 09/11/18 17:15 09/11/18 17:15 Intake and Output: 09/11/18 09/11/18 06:59 18:59 Intake Total 0 Balance 0 - Medications Medications: Current Medications Acetylcysteine (Acetylcysteine 20%) 4 ml IH BIDRESP [facility] Last Admin: 09/11/18 07:38 Dose: 4 ml Albuterol/Ipratropium (Duoneb 3 Mg/0.5 Mg (3 Ml) Ud) 3 ml IH [id number] [facility] Last Admin: 09/11/18 13:06 Dose: 3 ml Albuterol/Ipratropium (Duoneb 3 Mg/0.5 Mg (3 Ml) Ud) 3 ml IH Q2H PRN PRN Reason: Shortness of Breath Last Admin: 09/05/18 05:47 Dose: 3 ml Alprazolam (Xanax) 0.125 mg PO Q8H PRN; Protocol PRN Reason: Anxiety Stop: 09/18/18 10:31 Last Admin: 09/11/18 16:38 Dose: 0.125 mg Cefpodoxime Proxetil (Vantin) 200 mg PO Q12 [facility] Last Admin: 09/11/18 09:58 Dose: 200 mg Enoxaparin Sodium (Lovenox) 40 mg SC DAILY [facility]; Protocol Last Admin: 09/11/18 09:58 Dose: 40 mg Furosemide (Lasix) 20 mg PO DAILY [facility] Last Admin: 09/11/18 09:55 Dose: 20 mg Guaifenesin/Dextromethorphan (Mucinex-Dm 600-30 Mg) 1 tab PO BID [facility] Last Admin: 09/11/18 09:55 Dose: 1 tab Methylprednisolone (Solu-Medrol) 30 mg IVP DAILY [facility] Metoprolol Tartrate (Lopressor) 12.5 mg PO BRKDIN [facility] Last Admin: 09/11/18 16:05 Dose: 12.5 mg Montelukast Sodium (Singulair) 10 mg PO HS [facility] Last Admin: 09/10/18 21:24 Dose: 10 mg Ondansetron HCl (Zofran Inj) 4 mg IVP Q6H PRN PRN Reason: Nausea/Vomiting Last Admin: 09/06/18 18:31 Dose: 4 mg Pantoprazole Sodium (Protonix Ec Tab) 40 mg PO 0600,1600 [facility] Last Admin: 09/11/18 16:07 Dose: 40 mg Polyethylene Glycol (Miralax) 17 gm PO BID [facility] Last Admin: 09/11/18 09:58 Dose: 17 gm Roflumilast (Daliresp) 500 mcg PO DAILY [facility] Last Admin: 09/11/18 09:55 Dose: 500 mcg Tramadol HCl (Ultram) 50 mg PO TID PRN PRN Reason: Pain, moderate (4-7) Last Admin: 09/11/18 09:56 Dose: 50 mg - Labs Labs: 09/09/18 05:15 09/09/18 05:15 PT 10.9 SECONDS (9.4-12.5) 05/09/19 16:50 INR 0.98 08/31/18 16:50 APTT 30.3 Seconds (26.9-38.3) 08/31/18 16:50 Assessment and Plan - Assessment and Plan (Free Text) Plan: Pt seen and examined by me. I have reviewed the note of the senior medical director and I agree with it. I have discussed the assessment and plan with the resident. I have reviewed the medications and the last labs.
--- NOTE | 2018-09-11 21:18 | PN ---
DATE: 09/11/2018 The patient was seen and examined. I do agree with the note of the medical practice manager. I was involved in the plan of care. The patient has an acute COPD exacerbation. He is improving. He had O2 saturation of 90% this morning. The patient has been on metoprolol for his hypertension. He is on MiraLax for constipation. The patient is finishing a course of azithromycin for his bronchitis. He had roflumilast for his COPD. He is on nebulizer treatment and cough medications. The patient has chronic back pain, and this is currently being controlled with his current regimen of pain medications. He is on tramadol for his pain. His Solu-Medrol is being lowered. He is on Lovenox for DVT prophylaxis. He is able to ambulate. Hugh Allison MD
[2018-09-12] MEDS: Albuterol-Ipratrop 3 mg / 0.5 (3 ml) UD IH SCH ×3 (01:35→13:16)
[2018-09-12] MEDS: Pantoprazole 40 mg EC Tab PO SCH (05:17)
[2018-09-12] MEDS: Acetylcysteine 20% Inhal Soln (4ml) IH SCH (07:45)
[2018-09-12 08:29] VITALS: BP 134/75; PULSE 77
[2018-09-12 08:45] VITALS: TEMP 97.7; O2SAT 95
[2018-09-12] MEDS: Cefpodoxime (Vantin) 200 mg Tab PO SCH (09:24)
[2018-09-12] MEDS: POLYETHYLENE GLYCOL 3350 17 GM/Dose PACKET PO SCH (09:24)
[2018-09-12] MEDS: guaiFENesin-DM 600-30 mg ER Tab PO SCH (09:24)
[2018-09-12] MEDS: Enoxaparin 40 mg Syringe SC SCH (09:25)
[2018-09-12] MEDS ORDERED: MethylPREDNISolone 40 mg Vial IVP SCH (10:00)
--- NOTE | 2018-09-12 12:29 | PN ---
DATE: 09/12/2018 PULMONARY PROGRESS NOTE REFERRING PHYSICIAN: Dr. Allison. SUBJECTIVE: The patient is seen sitting at bedside, present. No acute distress. No overnight events reported. The patient reports feeling well today. Improvement in shortness of breath and cough. No headache, rhinitis, chest pain, abdominal pain, nausea, vomiting, diarrhea, leg pain, leg swelling reported. OBJECTIVE: VITAL SIGNS: Blood pressure 134/75, pulse 77, temperature 97.7, oxygen saturation 95% on room air. GENERAL: No acute distress. HEENT: Moist mucous membranes. Mallampati score 4. Crowded airway. NECK: Supple. No JVD. LUNGS: Few scattered rhonchi. CARDIOVASCULAR: S1, S2. ABDOMEN: Soft, nontender. No distention. No organomegaly. EXTREMITIES: No bilateral lower extremity edema. NEUROLOGIC: Awake, alert, verbal. Following commands. MEDICATIONS: Reviewed. Mucomyst 4 mL inhalation twice a day, DuoNeb 3 mL inhalation every 6 hours, DuoNeb 3 mL inhalation every 2 hours p.r.n., Xanax 0.125 mg every 8 hours p.r.n., Vantin 200 mg every 12 hours, Lovenox 40 mg subcu daily, Lasix 20 mg daily, Mucinex DM one tab twice a day, Solu-Medrol 30 mg IV push daily, metoprolol tartrate 12.5 mg breakfast and dinner, Singulair 10 mg at bedtime, Zofran 4 mg IV push every 6 hours p.r.n., Protonix 40 mg twice a day, MiraLax 17 g twice a day, Daliresp 500 mcg daily, tramadol 50 mg three times a day p.r.n. LABORATORY DATA: Reviewed. No new labs. IMPRESSION AND PLAN: Chronic obstructive lung disease exacerbation, gastric ulcers, gastroesophageal reflux disease, hyperdynamic left heart, suspected sleep apnea syndrome. The patient to be discharged home today. Pulmonary point of view, prescription given for the patient to have [employer] Ellipta inhaler one puff by mouth daily. The patient going home on tapering dose of prednisone. Continue metoprolol tartrate 12.5mg twice a day. Recommend the patient have full pulmonary function test as outpatient to evaluate extent of chronic lung disease. Recommend the patient have sleep study as outpatient to evaluate sleep apnea syndrome. The patient was seen and examined with Dr. Wade. Discussed assessment and plan as described above. The patient was seen and examined by Amanda Vasquez, nurse practitioner. Discussed assessment and plan as described above. Thank you for this consult. We will follow with you. Amanda Vasquez APN Asia Wade MD [facility]
--- NOTE | 2018-09-12 23:16 | DS ---
HISTORY OF PRESENT ILLNESS: The patient has no complaints of any chest pain. No shortness of breath. No headaches or dizziness. He was initially admitted to the hospital because of acute COPD exacerbation, it was severe and he was placed on multiple nebulizer treatments with steroids and antibiotics. He is feeling much better. He is able to ambulate. He says his shortness of breath has improved. He is not requiring oxygen. PHYSICAL EXAMINATION: VITAL SIGNS: Temperature is 97.7, pulse is 77, blood pressure 134/75 and respirations 20. GENERAL: The patient is lying in bed, flat, comfortable. HEENT: No oral lesion. Anicteric sclerae. Moist mucosa. NECK: No JVD, adenopathy, or thyromegaly. CARDIOVASCULAR: S1 and S2, regular. No murmurs, rubs, or gallops. LUNGS: Clear to auscultation bilaterally. No wheeze, rales, or rhonchi. ABDOMEN: Bowel sounds are positive, soft, nontender and nondistended. EXTREMITIES: No cyanosis, clubbing or edema. LABORATORY DATA: White count of 15.5 and hemoglobin is 14.2. Creatinine is 0.7. ASSESSMENT: 1. Acute chronic obstructive pulmonary disease exacerbation. 2. Bronchitis. 3. Anxiety. 4. Chronic back pain. 5. Gastroesophageal reflux disease. 6. Constipation. 7. Hypertension. PLAN: The patient is on Daliresp for his COPD. He is receiving nebulizer treatments. He is on metoprolol, Toprol 5 mg twice a day. He is on MiraLax for his constipation. He is receiving Solu-Medrol 30 mg daily. He is on Tramadol for pain. He is on Vantin. He is on heart-healthy diet. CONDITION: Stable. ACTIVITIES: Increase as tolerated. Hugh Allison MD
== END 2018-09-12 10:55 | disposition home or self-care (01) | DRG 191 ==
LOC: ED 16:26 → ERH 18:30 → 2RSO 21:12 → 3RSO 09-04 23:01
PROVIDERS: ADMIT Internal Medicine Nephrology; ATTEND Internal Medicine Nephrology
PROC: 3E0F7GC Introduction of Other Therapeutic Substance into Respiratory Tract, Via Natural or Artificial Opening (ICD-10-PCS; principal; 2018-09-01)
DX: J43.9 Emphysema, unspecified (principal); E87.3 Alkalosis; I10 Essential (primary) hypertension; E87.5 Hyperkalemia; G89.29 Other chronic pain; M54.9 Dorsalgia, unspecified; G47.33 Obstructive sleep apnea (adult) (pediatric); K21.9 Gastro-esophageal reflux disease without esophagitis; F41.9 Anxiety disorder, unspecified; K59.00 Constipation, unspecified; K25.9 Gastric ulcer, unspecified as acute or chronic, without hemorrhage or perforation; F17.210 Nicotine dependence, cigarettes, uncomplicated